=== PATIENT | female | born 1975 | race Two or more races ===

== ENCOUNTER 2020-08-24 13:11 | Emergency (ER) | payer OTHER, SELFPAY ==
--- NOTE | ~2020-08-24 | CT_ITS ---
EXAMINATION: CT ABDOMEN AND PELVIS WITHOUT CONTRAST CLINICAL INFORMATION: Flank pain. History of kidney stones. COMPARISON: CT abdomen pelvis December 27, 2017. KUB January 01, 2018. Renal ultrasound January 22, 2018 TECHNIQUE: Multidetector volumetric imaging was performed from the superior aspect of the liver through the pubic symphysis. Sagittal and coronal reformatted images were obtained on the technologist's workstation. This CT examination was performed using dose optimization techniques as appropriate, variously including the following: *Automated exposure control *Adjustment of mA and/or kV according to patient size (this includes techniques or standardized protocols for targeted exams where dose is matched to indication/reason for exam; i.e. extremities or head) *Use of iterative reconstruction technique DLP: 635 mGy-cm FINDINGS: LUNG BASES: The visualized lung bases are unremarkable. LIVER, GALLBLADDER, AND BILIARY TREE: There are scattered small hypodensities measuring 1 cm and less in size and the liver which are unchanged since CAT scan December 20, 2017. No suspicious liver lesion or intrahepatic bile duct dilatation. The gallbladder is unremarkable with no evidence of radiopaque gallstones, gallbladder wall thickening, or obvious pericholecystic inflammatory changes. PANCREAS: Unremarkable. SPLEEN: Unremarkable. ADRENAL GLANDS: Unremarkable. KIDNEYS AND URETERS: The kidneys are normal in size, shape, and attenuation. No hydronephrosis, hydroureter, or calculi seen. No perinephric stranding. BLADDER: Unremarkable. GASTROINTESTINAL TRACT: There are scattered diverticula of the colon. There is no diverticulitis. There is no bowel wall thickening /edema. There is no bowel obstruction. There is a moderate volume of stool in the colon. The appendix is normal . The small bowel loops are unremarkable. The stomach is normal. There is no hiatal hernia. ABDOMINAL WALL: No significant hernia is appreciated. LYMPH NODES: Normal. VASCULAR: Unremarkable. PELVIC VISCERA: Unremarkable. OSSEOUS STRUCTURES: Degenerative spondylosis of disc height narrowing vacuum disc phenomena endplate spurring and osteosclerosis of endplates L5-S1. No spondylolysis or spondylolisthesis. CT/CT abdomen pelvis wo con IMPRESSION: 1. No acute abnormality CT scan abdomen pelvis. Normal kidneys, ureter and bladder. 2. Mild diverticulosis of colon. No acute change of bowel. 3. Stable scattered hypodensities of liver unchanged since CAT scan December 20, 2017.
[2020-08-24 13:38] VITALS: BP 132/78; PULSE 100; RESP 18; TEMP 36; O2SAT 95; BMI 36.5
[2020-08-24 14:31] LABS: MANUAL DIFF FLAG NO
[2020-08-24 14:35] LABS: Basophils Percent Auto 0.4 % (0-2); Eosinophils Absolute Auto 0.1 X10*3/uL (0.0-0.4); Eosinophils Percent Auto 1.3 % (0-4); Hematocrit 40.5 % (37-47); Hemoglobin 13.1 g/dl (12.0-16.0); Imm Gran Abs Auto 0.04 X10*3/uL (0.00-0.03); Imm Gran Pct Auto 0.4 % (0.0-0.4); Lymphocytes Percent Auto 31.6 % (20-40); Mean Corpuscular HGB Conc 32.3 g/dl (31.0-35.0); Mean Corpuscular Volume 89.8 fL (80-98); Mean Platelet Volume 9.8 fL (9.4-12.3); Monocytes Absolute Auto 0.5 X10*3/uL (0.1-1.2); Monocytes Percent Auto 5.1 % (2-11); Neutrophils Absolute Auto 5.7 X10*3/uL (2.0-8.3); Neutrophils Percent Auto 61.2 % (45-73); Platelet Count 284 X10*3/uL (160-400); Red Blood Count 4.51 X10*6/uL (4.20-5.50); Red Cell Distribution Width 14.1 % (11.0-16.0); White Blood Count 9.3 X10*3/uL (4.8-10.8)
[2020-08-24 15:00] LABS: Anion Gap 10 (12-20); Blood Urea Nitrogen 11 mg/dL (9-16); Calcium 9.4 mg/dL (8.4-10.2); Carbon Dioxide 23 mmol/L (22-29); Chloride 110 mmol/L (96-108); Creatinine Clr Calc Pharmacy 115.2; Estimated Glomerular Filt Rate > 60; Glucose Random 94 mg/dL (60-115); Potassium 4.1 mmol/L (3.3-5.1); Sodium 139 mmol/L (135-145)
[2020-08-24 17:33] VITALS: BP 132/74; PULSE 78; RESP 16; TEMP 36.9; O2SAT 99
[2020-08-24 17:50] LABS: Glucose Urine UA NEG (NEG); Leukocyte Esterase Urine NEG (NEG); Nitrite Urine NEG (NEG); PH 5.5 (5.0-8.0); Specific Gravity - Urine >= 1.030 (1.005-1.025); Urine Blood 3+ (NEG); Urine Ketones NEG (NEG); Urine Protein 1+ MG/DL (NEG-TRACE)
[2020-08-24 17:52] LABS: Appearance Urine CLOUDY; Color Urine DARK YELLOW
[2020-08-24 17:53] LABS: UPreg QC Valid YES; Urine Pregnancy NEGATIVE (NEGATIVE)
[2020-08-24 17:57] VITALS: BP 121/58; PULSE 80; RESP 16; TEMP 36.6; O2SAT 99
[2020-08-24] MEDS: Morphine Sulfate 4 MG/ML CARTRIDGE IVPUSH (17:59)
[2020-08-24] MEDS: Ketorolac Tromethamine 30 MG/ML VIAL IVPUSH (17:59)
[2020-08-24] MEDS: ondansetron HCL 4 MG/2 ML VIAL IVPUSH (17:59)
[2020-08-24] MEDS: 0.9 % Sodium Chloride 1,000 ML 999 ML IVCONT (17:59)
[2020-08-24 18:10] LABS: Amorphous Sediment Urine TRACE /LPF; Mucus Urine TRACE /LPF; Squamous Epithelial Cell Urine TRACE /LPF; WBC Urine 0 /HPF (0-4)
--- NOTE | 2020-08-24 18:40 | ED.FEMALEGU ---
HPI - Female Genitourinary General Chief complaint: Urogenital-Female Stated complaint: nauseous Time Seen by Provider: 08/24/20 17:26 Source: patient Mode of arrival: ambulatory Limitations: no limitations History of Present Illness HPI Narrative: 45-year-old female with past medical history of kidney stones presents with 2 days of abdominal pain, flank pain radiating down to her groin, and urinary symptoms. She states it feels like her prior kidney stones, and she also has nausea and intermittent chills. She does not describe any chest pain or pressure, palpitations, shortness breath, shortness of breath on exertion, abdominal distention, hematuria, vomiting, diarrhea, constipation, melena, hematochezia, edema, loss of balance, Vaginal pain, vaginal discharge, abnormal vaginal bleeding or any other concerning symptoms. MD elicited complaint: dysuria and flank pain Pertinent past history: other ( kidney stones) Onset (ago): day(s) ( to) Location of symptoms: LLQ Severity: moderate Female Urogenital Radiation: LLQ and L Flank Severity scale (1-10): 9 Quality of pain: sharp, stabbing and aching Consistency: intermittent Vaginal discharge: none Vaginal bleeding: none Urinary symptoms: Dysuria and Difficulty Urinating Exacerbating factors: movement Relieving factors: none Associated symptoms: loss of appetite and nausea Treatment prior to arrival: none Sexual activity: No Patient : No Related Data Previous Rx's Medication Instructions Recorded cyclobenzaprine 10 mg PO TID PRN #14 tab 08/24/20 ibuprofen 600 mg PO Q6H PRN #60 tab 08/24/20 Allergies Allergy/AdvReac Type Severity Reaction Status Date / Time No Known Allergies Allergy Verified 08/24/20 13:37 Review of Systems Review of Systems: Constitutional: No Fever, positive Chills ENT/Mouth: No sore throat Eyes: No Eye Pain, No Swelling, No Redness Cardiovascular: No Chest Pain, No SOB Respiratory: No Cough, No Sputum, No Wheezing Gastrointestinal: positive Nausea, no Vomiting, No Diarrhea, positive abdominal pain Genitourinary: positive Dysuria, positive urinary frequency, positive Hematuria, positive Flank Pain, positive hesitancy Musculoskeletal: No joint pain, No Myalgias Skin: No Skin Lesions, No rash Neuro: No Weakness, No Numbness, No Headache Psych: No Anxiety/Panic, No Depression Heme/Lymph: No Bruising, No Lymphadenopathy Endocrine: No Polyuria, No Polydipsia Yes all other systems are reviewed and are negative ON LICENSE OF [facility] Past Medical History Attestation statement: The following information was validated with the patient. Source: old records reviewed Medical History Kidney calculi Social History Social History Patient Tobacco Use Status: Current everyday Tobacco user Use of substances other than those prescribed or required for medical reasons: No Advance Directives: No Advance Directives Information Provided: Yes Patient : No Physical Exam Vital Signs: Vital Signs: Last Vital Signs Temp 97.8 F 08/24/20 17:57 Pulse 80 08/24/20 17:57 Resp 16 08/24/20 17:57 BP 121/58 L 08/24/20 17:57 Pulse Ox 99 08/24/20 17:57 Body Mass Index 36.5 Appearance: Alert. Oriented X3. moderate distress. Eyes: Pupils equal, round and reactive to light. ENT: Pharynx normal. Neck: Normal inspection. Neck supple. CVS: Normal heart rate and rhythm. Pulses normal. Respiratory: No respiratory distress. Breath sounds normal. Abdomen: Soft and left upper left lower quadrant tenderness to palpation, positive CVA tenderness greater on the Left than the right. Skin: Skin warm and dry. Normal skin color. Normal skin turgor. Extremities: No lower extremity edema. moves all extremities against resistance. Gait well Balanced well coordinated. Neuro: No motor deficit. No sensory deficit. cranial nerves 2-12 intact. Course Course Course Narrative: 45-year-old male presents with abdominal pain, flank pain and urinary symptoms. Urinalysis pending, CBC and Chem 7 unremarkable will. Will order CT scan abdomen pelvis rule out kidney stone. Will resuscitate with 1 L fluid, give Toradol, Benadryl, and morphine. CT scan is negative, for patient presentation is consistent with possibly a passed kidney stone. Will have patient follow-up with primary care physician. Patient verbalized understanding of and agrees to plan of care discharge home. MDM - Female Genitourinary MDM Narrative Medical decision making narrative: Kidney stone, pyelonephritis Differential Diagnosis Differential diagnosis: Likely urinary tract infection, ruptured ovarian cyst and cystitis Medical Records Attestation: I reviewed the patient's medical records. Lab Data Attestation: I reviewed the patient's lab results. Result diagrams: 08/24/20 14:27 08/24/20 14:27 Labs: Lab Results 08/24/20 08/24/20 08/24/20 Range/Units 14:27 14:27 17:43 WBC 9.3 (4.8-10.8) X10*3/uL RBC 4.51 (4.20-5.50) X10*6/uL Hgb 13.1 (12.0-16.0) g/dl Hct 40.5 (37-47) % MCV 89.8 (80-98) fL MCH 29.0 (27.0-33.0) pg MCHC 32.3 (31.0-35.0) g/dl RDW 14.1 (11.0-16.0) % Plt Count 284 (160-400) X10*3/uL MPV 9.8 (9.4-12.3) fL Immature Gran % (Auto) 0.4 (0.0-0.4) % Neut % (Auto) 61.2 (45-73) % Lymph % (Auto) 31.6 (20-40) % [place] % (Auto) 5.1 (2-11) % Eos % (Auto) 1.3 (0-4) % Baso % (Auto) 0.4 (0-2) % Lymph # (Auto) 3.0 (1.2-4.9) X10*3/uL [place] # (Auto) 0.5 (0.1-1.2) X10*3/uL Eos # (Auto) 0.1 (0.0-0.4) X10*3/uL Baso # (Auto) 0.0 (0.0-0.2) X10*3/uL Abs Immat Gran (auto) 0.04 H (0.00-0.03) X10*3/uL Absolute Neuts (auto) 5.7 (2.0-8.3) X10*3/uL Absolute Nucleated RBC 0.000 (0.0-0.012) X10*3/uL Nucleated RBC % (auto) 0.0 (0.0-0.2) /100WBC Sodium 139 (135-145) mmol/L Potassium 4.1 (3.3-5.1) mmol/L Chloride 110 H (96-108) mmol/L Carbon Dioxide 23 (22-29) mmol/L Anion Gap 10 L (12-20) BUN 11 (9-16) mg/dL Creatinine 0.71 (0.5-1.4) mg/dL Estim Creat Clear Calc 115.2 Estimated GFR > 60 Random Glucose 94 (60-115) mg/dL Calcium 9.4 (8.4-10.2) mg/dL Urine Color DARK YELLOW Urine Appearance CLOUDY Urine pH 5.5 (5.0-8.0) Ur Specific [place] >= 1.030 H (1.005-1.025) Urine Protein 1+ H (NEG-TRACE) MG/DL Urine Glucose (UA) NEG (NEG) MG/DL Urine Ketones NEG (NEG) MG/DL Urine Blood 3+ H (NEG) Urine Nitrite NEG (NEG) Ur Leukocyte Esterase NEG (NEG) Urine RBC 76-150 H (0) /HPF Urine WBC 0 (0-4) /HPF Ur Squamous Epith Cells TRACE /LPF Amorphous Sediment TRACE /LPF Urine Bacteria NONE /LPF Urine Mucus TRACE /LPF Urine Test (NEGATIVE) 08/24/20 Range/Units 17:43 WBC (4.8-10.8) X10*3/uL RBC (4.20-5.50) X10*6/uL Hgb (12.0-16.0) g/dl Hct (37-47) % MCV (80-98) fL MCH (27.0-33.0) pg MCHC (31.0-35.0) g/dl RDW (11.0-16.0) % Plt Count (160-400) X10*3/uL MPV (9.4-12.3) fL Immature Gran % (Auto) (0.0-0.4) % Neut % (Auto) (45-73) % Lymph % (Auto) (20-40) % [place] % (Auto) (2-11) % Eos % (Auto) (0-4) % Baso % (Auto) (0-2) % Lymph # (Auto) (1.2-4.9) X10*3/uL [place] # (Auto) (0.1-1.2) X10*3/uL Eos # (Auto) (0.0-0.4) X10*3/uL Baso # (Auto) (0.0-0.2) X10*3/uL Abs Immat Gran (auto) (0.00-0.03) X10*3/uL Absolute Neuts (auto) (2.0-8.3) X10*3/uL Absolute Nucleated RBC (0.0-0.012) X10*3/uL Nucleated RBC % (auto) (0.0-0.2) /100WBC Sodium (135-145) mmol/L Potassium (3.3-5.1) mmol/L Chloride (96-108) mmol/L Carbon Dioxide (22-29) mmol/L Anion Gap (12-20) BUN (9-16) mg/dL Creatinine (0.5-1.4) mg/dL Estim Creat Clear Calc Estimated GFR Random Glucose (60-115) mg/dL Calcium (8.4-10.2) mg/dL Urine Color Urine Appearance Urine pH (5.0-8.0) Ur Specific [place] (1.005-1.025) Urine Protein (NEG-TRACE) MG/DL Urine Glucose (UA) (NEG) MG/DL Urine Ketones (NEG) MG/DL Urine Blood (NEG) Urine Nitrite (NEG) Ur Leukocyte Esterase (NEG) Urine RBC (0) /HPF Urine WBC (0-4) /HPF Ur Squamous Epith Cells /LPF Amorphous Sediment /LPF Urine Bacteria /LPF Urine Mucus /LPF Urine Test NEGATIVE (NEGATIVE) Imaging Data CT abdomen pelvis: Attestation: I personally reviewed and interpreted this imaging study as follows: Radiologist's impression: FINDINGS: LUNG BASES: The visualized lung bases are unremarkable. LIVER, GALLBLADDER, AND BILIARY TREE: There are scattered small hypodensities measuring 1 cm and less in size and the liver which are unchanged since CAT scan December 20, 2017. No suspicious liver lesion or intrahepatic bile duct dilatation. The gallbladder is unremarkable with no evidence of radiopaque gallstones, gallbladder wall thickening, or obvious pericholecystic inflammatory changes. PANCREAS: Unremarkable. SPLEEN: Unremarkable. ADRENAL GLANDS: Unremarkable. KIDNEYS AND URETERS: The kidneys are normal in size, shape, and attenuation. No hydronephrosis, hydroureter, or calculi seen. No perinephric stranding. BLADDER: Unremarkable. GASTROINTESTINAL TRACT: There are scattered diverticula of the colon. There is no diverticulitis. There is no bowel wall thickening /edema. There is no bowel obstruction. There is a moderate volume of stool in the colon. The appendix is normal . The small bowel loops are unremarkable. The stomach is normal. There is no hiatal hernia. ABDOMINAL WALL: No significant hernia is appreciated. LYMPH NODES: Normal. VASCULAR: Unremarkable. PELVIC VISCERA: Unremarkable. OSSEOUS STRUCTURES: Degenerative spondylosis of disc height narrowing vacuum disc phenomena endplate spurring and osteosclerosis of endplates L5-S1. No spondylolysis or spondylolisthesis. CT/CT abdomen pelvis wo con IMPRESSION: 1. No acute abnormality CT scan abdomen pelvis. Normal kidneys, ureter and bladder. 2. Mild diverticulosis of colon. No acute change of bowel. 3. Stable scattered hypodensities of liver unchanged since CAT scan December 20, 2017. Discharge Plan Discharge Clinical Impression: Renal colic Constipation Qualifiers: Constipation type: unspecified constipation type Qualified Code(s): K59.00 - Constipation, unspecified Chronic back pain Qualifiers: Back pain location: back pain in unspecified location Back pain laterality: midline Qualified Code(s): M54.9 - Dorsalgia, unspecified Patient Disposition: Home, Self-Care Instructions: Constipation (ED), Renal Colic (ED), Chronic Back Pain (DC) Additional Instructions: you were evaluated for abdominal pain, flank pain and back pain. CT scan of abdomen and pelvis is negative for acute findings requiring emergent intervention. Incidental finding was constipation, please use MiraLax on a daily basis. Please follow-up with Pain Management, Dr. Watson. we prescribe cyclobenzaprine which is a muscle relaxer, this medication can cause drowsiness, delay reaction time, and increased risk of falls. Do not drive or operate machinery while taking this medication. We prescribed Motrin 600 mg. Please take this medication every 6-8 hours as needed. Thank you for choosing this emergency department for evaluation. Please follow-up with primary care physician as needed. Return to the emergency department for any new, concerning, or worsening symptoms. Prescriptions: New cyclobenzaprine 10 mg tablet 10 mg PO TID PRN (Reason: muscle spasm) Qty: 14 RF: 0 ibuprofen 600 mg tablet 600 mg PO Q6H PRN (Reason: pain) Qty: 60 RF: 0 Interventions: ED Discharge Assessment Last Done: 08/24/20 19:31 Discharge Date/Time: 08/24/20 19:33
== END 2020-08-24 19:33 | disposition home or self-care (01) ==
PROVIDERS: Emergency Provider Emergency Medicine
DX: N23 Unspecified renal colic (principal); K59.00 Constipation, unspecified; G89.29 Other chronic pain; M54.9 Dorsalgia, unspecified; R11.0 Nausea; Z87.442 Personal history of urinary calculi
CPT/HCPCS: 36415; 74176; 80048; 81001; 81025; 85025; 96361; 96374; 96375; 99284; J1885; J2270; J2405

== ENCOUNTER 2021-01-07 13:59 | Emergency (ER) | payer OTHER, SELFPAY ==
--- NOTE | ~2021-01-07 | US_ITS ---
EXAMINATION: US OBSTETRICAL PELVIC AND TRANSVAGINAL CLINICAL INFORMATION: Vaginal bleeding and cramping. Nausea and vomiting. Beta-hCG 303. Date of LMP unknown. Patient passing large clots. COMPARISON: None. TECHNIQUE: Real-time scanning of the pelvis is acquired via transabdominal and transvaginal approach. FINDINGS: An anteverted uterus is mildly enlarged measures 13.1 x 7.2 x 8.8 cm in length, AP and transverse dimensions, respectively. There is no evidence of intrauterine . Increased vascularity is noted in the endometrial region in the otv-ou-coccn uterine segment. There is diffuse heterogeneity of the myometrium. Trace pelvic free fluid. The right ovary measures 3.4 x 2.1 x 2.3 cm and the left ovary measures 3.1 x 3.0 x 1.9 cm. The ovaries are normal in appearance. No adnexal mass. Trace free fluid in the pelvis is likely physiologic. US/US OB pelvic and transvaginal IMPRESSION: No evidence of intrauterine at this time. Increased vascularity is noted in the endometrial region in the [id number]-[id number] uterine segment; possibility of retained products of conception cannot be excluded. Other possibility may include very early intrauterine uterine with nonvisualization of intrauterine at this time. Recommend close clinical follow-up. Recommend correlation with serial beta-hCG. Follow-up imaging may be obtained as clinically deemed necessary.
[2021-01-07 14:30] VITALS: BP 144/91; PULSE 115; RESP 16; TEMP 36.9; O2SAT 100; BMI 33.5
--- NOTE | 2021-01-07 14:58 | ED.FEMALEGU ---
HPI - Female Genitourinary General Chief complaint: Vaginal Bleeding Stated complaint: VAGINAL BLEEDING [place]IS[place]RIAGE Time Seen by Provider: 01/07/21 14:28 Source: patient Mode of arrival: ambulatory History of Present Illness HPI Narrative: 45-year-old female presenting to the ED complaining of vaginal bleeding since Saturday with passage of large clots yesterday & positive test at home. Reports associated abdominal cramping, nausea, and emesis today. Denies fever, chills, diarrhea, dysuria, flank pain, lightheadedness/dizziness. Does not take anticoagulation Related Data Previous Rx's Medication Instructions Recorded cyclobenzaprine 10 mg tablet 10 mg PO TID PRN #14 tab 08/24/20 ibuprofen 600 mg tablet 600 mg PO Q6H PRN #60 tab 08/24/20 Allergies Allergy/AdvReac Type Severity Reaction Status Date / Time No Known Allergies Allergy Verified 08/24/20 13:37 Review of Systems Review of Systems: Constitutional: No Fever, No Chills, No Fatigue, No Malaise ENT/Mouth: No Hearing loss, No Ear Pain, No Nasal Congestion, No sore throat, No Rhinorrhea Eyes: No Eye Pain, No Swelling, No Vision Changes Cardiovascular: No Chest Pain, No SOB, No Dyspnea on Exertion, No Orthopnea, No Edema, No Palpitations Respiratory: No Cough, No Sputum, No Dyspnea Gastrointestinal: + Nausea, + Vomiting, No Diarrhea, No Constipation, + Abdominal pain, No Hematochezia, No Melena Genitourinary: + irregular bleeding, No Dysuria, No Hematuria, No Urgency, No Flank Pain, No vaginal discharge Musculoskeletal: No joint pain, No Myalgias, No Joint Swelling Skin: No Skin Lesions, No rash Neuro: No Weakness, No Numbness, No Loss of Consciousness, No Dizziness, No Headache Yes all other systems are reviewed and are negative [facility] Past Medical History Attestation statement: The following information was validated with the patient. Medical History Kidney calculi Social History Social History Patient Tobacco Use Status: Current everyday Tobacco user Advance Directives: No Advance Directives Information Provided: No Physical Exam Vital Signs: Vital Signs: Last Vital Signs Temp 98.2 F 01/07/21 17:48 Pulse 97 01/07/21 17:48 Resp 18 01/07/21 17:48 BP 135/79 01/07/21 17:48 Pulse Ox 98 01/07/21 17:48 Body Mass Index 33.5 Const: General: cooperative, healthy appearing and no acute distress Orientation/consciousness: patient oriented x3 Limitations: no limitations HENMT: Head: Yes normal to inspection Ears: hearing grossly normal bilaterally General nose exam: Normal external nose present Face and sinus: Yes normal facial exam Eyes: General: appearance normal, both eyes and all related structures EOM: EOMs intact bilaterally Neck: Neck: Yes normal visual inspection and Yes no meningeal signs Resp: Effort & Inspection: normal respiratory effort and no respiratory distress Auscultation: clear to auscultation bilaterally Cardio: Rate: regular rate Heart sounds: S1 normal heart sound present and S2 normal heart sound present GI: Inspection: Yes normal to inspection Palpation (GI): Soft to palpation, nontender, no guarding and not rigid : Other: + vaginal bleeding with large clots clots from cervix. No active hemorrhage General: Yes no CVA tenderness Speculum Exam - Vagina: vaginal bleeding Speculum Exam - Cervix: nontender Bimanual exam- vagina & uterus: normal bimanual exam and No Cervical tenderness present Bimanual Exam- Adnexa, other: normal adnexae and no tenderness OB/external & speculum: vaginal bleeding Back/Spine/Pelvis: Back: no CVA tenderness Skin: Rashes: no rashes Wounds: no wounds Neuro: General: patient oriented x3 and no meningeal signs Gait exam (Neuro): Normal gait present Extrem: General: Yes normal to inspection Course Course Course Narrative: -1612--no leukocytosis. H&H lower than baseline at 10.9/33 > will obtain 3 hour repeat -hCG 307. Labs otherwise unremarkable - UA infected and with RBCs > patient given 1st dose of Keflex in the ED -1740--US OB pelvic and transvaginal IMPRESSION: No evidence of intrauterine at this time. Increased vascularity is noted in the endometrial region in the [id number] uterine segment; possibility of retained products of conception cannot be excluded. Other possibility may include very early intrauterine uterine with nonvisualization of intrauterine at this time. Recommend close clinical follow-up. Recommend correlation with serial beta-hCG. Follow-up imaging may be obtained as clinically deemed necessary. > OBGYN Dr. Boogie consulted, recommended observation for 1-2 hours with re-evaluation/pad count, pending possible D&C for incomplete versus complete -1800--ED care transferred to EILEEN Gill pending repeat H&H at 6:30 p.m. and pad count/observation x1.5 hours followed by OBGYN recommendations MDM - Female Genitourinary MDM Narrative Medical decision making narrative: 45-year-old female presenting to the ED complaining of vaginal bleeding since Saturday with passage of large clots yesterday & positive test at home. Reports associated abdominal cramping, nausea, and emesis today. On exam initially tachycardic, NAD/nontoxic, abdomen soft/nontender, no CVAT. On pelvic exam vaginal bleeding noted with large clots from cervix. No CMT or adnexal tenderness. Concern for /the and/incomplete vs ectopic vs DUB. Lower concern for appendicitis/diverticulitis or renal stone Plan: Labs, UA, pelvic, pelvic ultrasound, re-evaluate Medical Records Attestation: I reviewed the patient's medical records. Lab Data Attestation: I reviewed the patient's lab results. Result diagrams: 01/07/21 15:38 01/07/21 15:38 Labs: Lab Results 01/07/21 01/07/21 01/07/21 Range/Units 15:38 15:38 15:38 WBC 9.8 (4.8-10.8) X10*3/uL RBC 3.68 L (4.20-5.50) X10*6/uL Hgb 10.9 L (12.0-16.0) g/dl Hct 33.0 L (37.0-47.0) % MCV 89.7 (80.0-98.0) fL MCH 29.6 (27.0-33.0) pg MCHC 33.0 (31.0-35.0) g/dl RDW 14.5 (11.0-16.0) % Plt Count 236 (160-400) X10*3/uL MPV 9.9 (9.4-12.3) fL Immature Gran % (Auto) 0.5 H (0.0-0.4) % Neut % (Auto) 60.4 (45-73) % Lymph % (Auto) 32.3 (20-40) % [place] % (Auto) 4.8 (2-11) % Eos % (Auto) 1.5 (0-4) % Baso % (Auto) 0.5 (0-2) % Lymph # (Auto) 3.2 (1.2-4.9) X10*3/uL [place] # (Auto) 0.5 (0.1-1.2) X10*3/uL Eos # (Auto) 0.2 (0.0-0.4) X10*3/uL Baso # (Auto) 0.1 (0.0-0.2) X10*3/uL Abs Immat Gran (auto) 0.05 H (0.00-0.03) X10*3/uL Absolute Neuts (auto) 5.9 (2.0-8.3) x10*3/uL Absolute Nucleated RBC 0.000 (0.0-0.012) X10*3/uL Nucleated RBC % (auto) 0.0 (0.0-0.2) /100WBC Sodium 140 (135-145) mmol/L Potassium 3.5 (3.3-5.1) mmol/L Chloride 108 (96-108) mmol/L Carbon Dioxide 26 (22-29) mmol/L Anion Gap 10 L (12-20) BUN 9 (9-16) mg/dL Creatinine 0.68 (0.5-1.4) mg/dL Estim Creat Clear Calc 114.8 Estimated GFR > 60 Random Glucose 107 (60-115) mg/dL Calcium 8.4 D (8.4-10.2) mg/dL Magnesium 1.8 (1.6-2.6) mg/dL Total Bilirubin 0.2 (0.0-1.0) mg/dL Direct Bilirubin < 0.2 (0.0-0.5) mg/dL AST 13 (5-31) U/L ALT 16 (0-31) U/L Alkaline Phosphatase 60 (39-117) U/L Total Protein 7.0 (6.5-8.0) g/dL Albumin 3.7 (3.5-5.0) g/dL Lipase 39 (8-78) U/L Beta HCG, Quant 307 mIU/mL Urine Color Urine Appearance Urine pH (5.0-8.0) Ur Specific [place] (1.005-1.025) Urine Protein (NEG-TRACE) MG/DL Urine Glucose (UA) (NEG) MG/DL Urine Ketones (NEG) MG/DL Urine Blood (NEG) Urine Nitrite (NEG) Ur Leukocyte Esterase (NEG) Urine RBC (0) /HPF Urine WBC (0-4) /HPF Ur Squamous Epith Cells /LPF Calcium Oxalate Crystal /LPF Urine Bacteria /LPF Urine Mucus /LPF Urine Yeast /HPF COVID-19 (JAMAL) (Negative) COVID-19 Clin Com Blood Type O Positive 01/07/21 01/07/21 Range/Units 15:38 15:47 WBC (4.8-10.8) X10*3/uL RBC (4.20-5.50) X10*6/uL Hgb (12.0-16.0) g/dl Hct (37.0-47.0) % MCV (80.0-98.0) fL MCH (27.0-33.0) pg MCHC (31.0-35.0) g/dl RDW (11.0-16.0) % Plt Count (160-400) X10*3/uL MPV (9.4-12.3) fL Immature Gran % (Auto) (0.0-0.4) % Neut % (Auto) (45-73) % Lymph % (Auto) (20-40) % [place] % (Auto) (2-11) % Eos % (Auto) (0-4) % Baso % (Auto) (0-2) % Lymph # (Auto) (1.2-4.9) X10*3/uL [place] # (Auto) (0.1-1.2) X10*3/uL Eos # (Auto) (0.0-0.4) X10*3/uL Baso # (Auto) (0.0-0.2) X10*3/uL Abs Immat Gran (auto) (0.00-0.03) X10*3/uL Absolute Neuts (auto) (2.0-8.3) x10*3/uL Absolute Nucleated RBC (0.0-0.012) X10*3/uL Nucleated RBC % (auto) (0.0-0.2) /100WBC Sodium (135-145) mmol/L Potassium (3.3-5.1) mmol/L Chloride (96-108) mmol/L Carbon Dioxide (22-29) mmol/L Anion Gap (12-20) BUN (9-16) mg/dL Creatinine (0.5-1.4) mg/dL Estim Creat Clear Calc Estimated GFR Random Glucose (60-115) mg/dL Calcium (8.4-10.2) mg/dL Magnesium (1.6-2.6) mg/dL Total Bilirubin (0.0-1.0) mg/dL Direct Bilirubin (0.0-0.5) mg/dL AST (5-31) U/L ALT (0-31) U/L Alkaline Phosphatase (39-117) U/L Total Protein (6.5-8.0) g/dL Albumin (3.5-5.0) g/dL Lipase (8-78) U/L Beta HCG, Quant mIU/mL Urine Color RED Urine Appearance TURBID Urine pH 5.5 (5.0-8.0) Ur Specific [place] >= 1.030 H (1.005-1.025) Urine Protein 2+ H (NEG-TRACE) MG/DL Urine Glucose (UA) NEG (NEG) MG/DL Urine Ketones 5 (NEG) MG/DL Urine Blood 3+ H (NEG) Urine Nitrite POS H (NEG) Ur Leukocyte Esterase TRACE H (NEG) Urine RBC TNTC H (0) /HPF Urine WBC 1-4 (0-4) /HPF Ur Squamous Epith Cells 2+ /LPF Calcium Oxalate Crystal TRACE /LPF Urine Bacteria TRACE /LPF Urine Mucus 2+ /LPF Urine Yeast TRACE /HPF COVID-19 (JAMAL) Negative (Negative) COVID-19 Clin Com See Note Blood Type Critical Care Time Critical Care Time Critical Care Time: Yes Total Critical Care Time: 35 Attestation: >35 minutes of critical care time was spent speaking with patient, reviewing labs, reviewing imaging, re-evaluating patient, and speaking with consultants Discharge Plan Discharge Clinical Impression: UTI (urinary tract infection), Miscarriage Prescriptions: No Action cyclobenzaprine 10 mg tablet 10 mg PO TID PRN (Reason: muscle spasm) Qty: 14 RF: 0 ibuprofen 600 mg tablet 600 mg PO Q6H PRN (Reason: pain) Qty: 60 RF: 0
[2021-01-07 15:44] LABS: MANUAL DIFF FLAG NO
[2021-01-07 15:46] LABS: Basophils Absolute Auto 0.1 X10*3/uL (0.0-0.2); Basophils Percent Auto 0.5 % (0-2); Eosinophils Absolute Auto 0.2 X10*3/uL (0.0-0.4); Eosinophils Percent Auto 1.5 % (0-4); Hemoglobin 10.9 g/dl (12.0-16.0); Imm Gran Abs Auto 0.05 X10*3/uL (0.00-0.03); Imm Gran Pct Auto 0.5 % (0.0-0.4); Lymphocytes Absolute Auto 3.2 X10*3/uL (1.2-4.9); Lymphocytes Percent Auto 32.3 % (20-40); Mean Corpuscular Hemoglobin 29.6 pg (27.0-33.0); Mean Corpuscular Volume 89.7 fL (80.0-98.0); Mean Platelet Volume 9.9 fL (9.4-12.3); Monocytes Absolute Auto 0.5 X10*3/uL (0.1-1.2); Monocytes Percent Auto 4.8 % (2-11); Neutrophils Absolute Auto 5.9 x10*3/uL (2.0-8.3); Neutrophils Percent Auto 60.4 % (45-73); Platelet Count 236 X10*3/uL (160-400); Red Blood Count 3.68 X10*6/uL (4.20-5.50); Red Cell Distribution Width 14.5 % (11.0-16.0); White Blood Count 9.8 X10*3/uL (4.8-10.8)
[2021-01-07 15:56] LABS: Appearance Urine TURBID; Color Urine RED; Glucose Urine UA NEG (NEG); Leukocyte Esterase Urine TRACE (NEG); Nitrite Urine POS (NEG); PH 5.5 (5.0-8.0); Specific Gravity - Urine >= 1.030 (1.005-1.025); UACC Culture Trigger YES; Urine Blood 3+ (NEG); Urine Ketones 5 MG/DL (NEG); Urine Protein 2+ MG/DL (NEG-TRACE)
[2021-01-07 16:00] LABS: COVID-19 Test Negative (Negative); IDNOW Serial# 9DD0AD1C
[2021-01-07 16:01] LABS: Mucus Urine 2+ /LPF; RBC Urine TNTC /HPF (0); Squamous Epithelial Cell Urine 2+ /LPF
[2021-01-07 16:02] LABS: Bacteria Urine TRACE /LPF; Calcium Oxalate Crystals Urine TRACE /LPF
[2021-01-07 16:07] LABS: Alanine Aminotransferase 16 U/L (0-31); Albumin Level 3.7 g/dL (3.5-5.0); Alkaline Phosphatase 60 U/L (39-117); Anion Gap 10 (12-20); Aspartate Amino Transferase 13 U/L (5-31); Blood Urea Nitrogen 9 mg/dL (9-16); Calcium 8.4 mg/dL (8.4-10.2); Carbon Dioxide 26 mmol/L (22-29); Chloride 108 mmol/L (96-108); Creatinine Clr Calc Pharmacy 114.8; Estimated Glomerular Filt Rate > 60; Glucose Random 107 mg/dL (60-115); Lipase 39 U/L (8-78); Magnesium 1.8 mg/dL (1.6-2.6); Potassium 3.5 mmol/L (3.3-5.1); Sodium 140 mmol/L (135-145)
[2021-01-07 16:09] LABS: HCG Quantitative 307 mIU/mL
[2021-01-07 16:20] LABS: Bilirubin Direct < 0.2 mg/dL (0.0-0.5); Bilirubin Total 0.2 mg/dL (0.0-1.0)
[2021-01-07 17:48] VITALS: BP 135/79; PULSE 97; RESP 18; TEMP 36.8; O2SAT 98
[2021-01-07] MEDS: cephALEXin 500 MG CAPSULE PO (18:21)
[2021-01-07 18:55] LABS: MANUAL DIFF FLAG NO
[2021-01-07 18:56] LABS: Basophils Percent Auto 0.4 % (0-2); Eosinophils Absolute Auto 0.1 X10*3/uL (0.0-0.4); Eosinophils Percent Auto 1.5 % (0-4); Hematocrit 32.5 % (37.0-47.0); Hemoglobin 10.5 g/dl (12.0-16.0); Imm Gran Abs Auto 0.03 X10*3/uL (0.00-0.03); Imm Gran Pct Auto 0.3 % (0.0-0.4); Lymphocytes Absolute Auto 3.2 X10*3/uL (1.2-4.9); Lymphocytes Percent Auto 33.4 % (20-40); Mean Corpuscular HGB Conc 32.3 g/dl (31.0-35.0); Mean Corpuscular Hemoglobin 29.3 pg (27.0-33.0); Mean Corpuscular Volume 90.8 fL (80.0-98.0); Mean Platelet Volume 9.9 fL (9.4-12.3); Monocytes Absolute Auto 0.4 X10*3/uL (0.1-1.2); Monocytes Percent Auto 3.7 % (2-11); Neutrophils Absolute Auto 5.7 x10*3/uL (2.0-8.3); Neutrophils Percent Auto 60.7 % (45-73); Platelet Count 225 X10*3/uL (160-400); Red Blood Count 3.58 X10*6/uL (4.20-5.50); Red Cell Distribution Width 14.6 % (11.0-16.0); White Blood Count 9.4 X10*3/uL (4.8-10.8)
--- NOTE | 2021-01-07 19:47 | PM.GYNCN ---
CORRECTION LIEUTENANT - CN: HPI Data of Consult Consult date: 01/07/21 Primary Care Provider: None Physician Consult Narrative Narrative: I was consulted on Cherelle Rooney who is a 45 year old female who presented emergency room with 6 day history of vaginal bleeding, the patient LMP was last Saturday, 6 days ago, and was not delayed, 8 was associated with very heavy vaginal bleeding according to the patient, associated with passage of blood clots and cramping that lasted for 5 days. Today, the bleeding started to slow down with the cramping. The patient has been in the emergency room few the last hours, the last couple of hours the bleeding almost stopped and the cramping slowed down markedly according to the patient H&H at 15:38 was 10.9/33, repeated at 18:52 was 10.5/32.5, hCG was 307 and blood type is O positive. Pelvic ultrasound showed No evidence of intrauterine at this time. Increased vascularity is noted in the endometrial region in the [id number] uterine segment; possibility of retained products of conception cannot be excluded. Other possibility may include very early intrauterine uterine with nonvisualization of intrauterine at this time cc:: CC: MAINTENANCE AIDE - Review of Systems Review of Systems ROS Unobtainable: All systems reviewed & are unremarkable except as noted in HPI and below OB PMFSH Past Medical History Medical History Kidney calculi Social History Social History Patient Tobacco Use Status: Current everyday Tobacco user Advance Directives: No Advance Directives Information Provided: No Meds Allergies Allergy/AdvReac Type Severity Reaction Status Date / Time No Known Allergies Allergy Verified 08/24/20 13:37 CORRECTION LIEUTENANT Physical Exam Vitals Vital signs: Temp Pulse Resp BP Pulse Ox 98.2 F 97 18 135/79 98 01/07/21 17:48 01/07/21 17:48 01/07/21 17:48 01/07/21 17:48 01/07/21 17:48 Body Mass Index 33.5 Female Genitalia (Pelvic) Vulva: No lesions Vagina: No erythema, Normal discharge and No lesions Cervix: Grossly normal and No cervical motion tenderness Uterus: Normal size and Nontender Adnexa/Parametria: Adnexal Tenderness: None, Adnexal Mass: None, Parametrial Tenderness: None and Parametrial Mass: None Additional Comments: Pelvic exam showed no blood per vagina, no active bleeding CORRECTION LIEUTENANT - Results Labs CBC & Chem 7: 01/07/21 18:52 01/07/21 15:38 Labs: Short CBC 01/07/21 01/07/21 Range/Units 15:38 18:52 WBC 9.8 9.4 (4.8-10.8) X10*3/uL Hgb 10.9 L 10.5 L (12.0-16.0) g/dl Hct 33.0 L 32.5 L (37.0-47.0) % Plt Count 236 225 (160-400) X10*3/uL BMP 01/07/21 15:38 Sodium 140 Potassium 3.5 Chloride 108 Carbon Dioxide 26 BUN 9 Creatinine 0.68 Calcium 8.4 D Liver Function 01/07/21 Range/Units 15:38 Total Bilirubin 0.2 (0.0-1.0) mg/dL Direct Bilirubin < 0.2 (0.0-0.5) mg/dL AST 13 (5-31) U/L ALT 16 (0-31) U/L Alkaline Phosphatase 60 (39-117) U/L Albumin 3.7 (3.5-5.0) g/dL Urine 01/07/21 Range/Units 15:47 Urine Color RED Urine Appearance TURBID Urine pH 5.5 (5.0-8.0) Ur Specific [place] >= 1.030 H (1.005-1.025) Urine Protein 2+ H (NEG-TRACE) MG/DL Urine Glucose (UA) NEG (NEG) MG/DL Imaging US - abdomen: Radiologist's impression: ITS Impressions Pelvic/Transvag US 01/07/21 16:10 IMPRESSION: No evidence of intrauterine at this time. Increased vascularity is noted in the endometrial region in the waw-pq-delar uterine segment; possibility of retained products of conception cannot be excluded. Other possibility may include very early intrauterine uterine with nonvisualization of intrauterine at this time. Recommend close clinical follow-up. Recommend correlation with serial beta-hCG. Follow-up imaging may be obtained as clinically deemed necessary. Assessment and Plan (1) Complete : Status: Acute Discussed with the patient the finding on physical exam, no blood per vagina, no evidence of active bleeding; since the abdominal cramping and vaginal bleeding has resolved, discussed with the patient that the clinical picture is consistent with complete but cannot rule out incomplete , ectopic or early intrauterine . IRecommended repeat hCG on Saturday and follow-up in the office, instructions given to patient to call or come back to emergency room in case of heavy vaginal bleeding, cramping or abdominal pain. All questions answered, the patient verbalized understanding. I discussed the case with Bridget Morales, emergency room PA
[2021-01-08 04:51] LABS: CT PCR NOT DETECTED (Not Detect.); NG PCR NOT DETECTED (Not Detect.)
== END 2021-01-07 20:20 | disposition home or self-care (01) ==
PROVIDERS: Physician Assistant; Emergency Provider Internal Medicine
DX: O03.9 Complete or unspecified spontaneous abortion without complication (principal); N39.0 Urinary tract infection, site not specified; Z20.822 Contact with and (suspected) exposure to COVID-19; Z79.899 Other long term (current) drug therapy
CPT/HCPCS: 36415; 76801; 76817; 80048; 80076; 81001; 83690; 83735; 84702; 85025; 86900; 86901; 87086; 87480; 87491; 87510; 87591; 87635; 87660; 96360; 99283; 99291

== ENCOUNTER 2021-03-10 10:20 | Outpatient (REF) | payer OTHER, SELFPAY ==
[2021-03-10 10:50] LABS: Binax Now Covid-19 Ag Positive (Negative)
[2021-03-10 10:51] LABS: Binax Internal Control QC Valid; Binax Lot number: 9864
== END 2021-03-10 10:21 | disposition home or self-care (01) ==
LOC: HO.LAB 10:20
PROVIDERS: Visit Provider Internal Medicine
DX: Z20.822 Contact with and (suspected) exposure to COVID-19 (principal)
CPT/HCPCS: C9803

== ENCOUNTER 2021-06-20 13:10 | Emergency (ER) | payer OTHER, SELFPAY ==
--- NOTE | ~2021-06-20 | XR_ITS ---
EXAMINATION: XR CHEST CLINICAL INFORMATION: Shortness of breath COMPARISON: None TECHNIQUE: 2 views of the chest were obtained. FINDINGS: No focal consolidation. No pneumothorax. Trachea is midline. Cardiomediastinal silhouette is not enlarged. No large joint. Minimal degenerative changes of the thoracolumbar spine. Soft tissues are unremarkable. XR/XR chest 2V IMPRESSION: No acute cardiopulmonary process.
[2021-06-20 13:13] VITALS: BP 155/83; PULSE 99; RESP 18; TEMP 36.6; O2SAT 99; BMI 36.6
--- NOTE | 2021-06-20 13:17 | ECG_ITS ---
Test Reason : chest tightness Blood Pressure : / mmHG Vent. Rate : 089 BPM Atrial Rate : 089 BPM P-R Int : 126 ms QRS Dur : 088 ms QT Int : 362 ms P-R-T Axes : 053 039 033 degrees QTc Int : 440 ms Normal sinus rhythm Normal ECG No previous ECGs available Referred By: Generic ED Physician Electronically Signed By:SUZI CARBAJAL
[2021-06-20 13:52] LABS: COVID-19 Test Negative (Negative); IDNOW Serial# 16C4AD1C; Influenza A Negative (Negative); Influenza B2 Negative (Negative)
--- NOTE | 2021-06-20 13:59 | ED_ITS ---
HPI - SOB/Dyspnea General Chief Complaint: Dyspnea Stated Complaint: diff breathing Time Seen by Provider: 06/20/21 13:47 Source: patient Mode of arrival: ambulatory Limitations: no limitations History of Present Illness HPI Narrative: 46 years old female walked in for evaluation of shortness of breath. Patient been complaining of SOB and chest pain for the past 4-6 days, describes symptoms as intermittent, more when she lay supine, less when she stood up, increase with exertion, described symptoms severity as moderate 5/10. Patient did not get vaccination for COVID and had COVID infection in the past felt the same way, however patient declined any sick contact, no recent travel, no lower extremity swelling. No fever chills. Chest pain has no radiation just localized in the center of the chest feels like tightness. Patient quit smoking a month ago. Related Data Previous Rx's Medication Instructions Recorded cyclobenzaprine 10 mg tablet 10 mg PO TID PRN #14 tab 08/24/20 ibuprofen 600 mg tablet 600 mg PO Q6H PRN #60 tab 08/24/20 albuterol sulfate 90 mcg/actuation 1 inh INHALATION QID PRN #6.7 g 06/20/21 aerosol inhaler azithromycin 250 mg tablet See Rx Instructions .ROUTE 06/20/21 (Zithromax Z-Karel) .COMPLEX #6 tab prednisone 10 mg tablet 10 mg PO BID #6 tab 06/20/21 Allergies Allergy/AdvReac Type Severity Reaction Status Date / Time No Known Allergies Allergy Verified 06/20/21 13:12 Review of Systems Review of Systems: All other systems are reviewed and are negative Constitutional: Reports as per HPI and Reports no additional constitutional complaints Eyes: Reports as per HPI and Reports no additional eye complaints Reports system reviewed and no additional complaints, except as documented Cardiovascular: Reports as per HPI and Reports no additional cardiovascular complaints Respiratory: Reports as per HPI and Reports no additional respiratory complaints Gastrointestinal: Reports as per HPI and Reports no additional gastrointestinal complaints Genitourinary: Reports no additional female genitourinary complaints Musculoskeletal: Reports no additional musculoskeletal complaints Skin/Breast: Reports system reviewed and no additional complaints, except as docu Psychiatric: Reports no additional psychiatric complaints Endocrine: Reports no additional endocrine complaints Hematologic/Lymphatic: Reports no additional hematologic/lymphatic complaints Allergic/Immunologic: Reports no additional allergic/immunologic complaints Reports system reviewed and no additional complaints, except as documented and Reports Abnormal speech present PMFSH Past Medical History Medical History Kidney calculi Social History Social History Alcohol intake: never Patient Tobacco Use Status: Never used Tobacco Use of substances other than those prescribed or required for medical reasons: No Advance Directives: No Advance Directives Information Provided: No Physical Exam Vital Signs: Vital Signs: Last Vital Signs Temp 98.9 F 06/20/21 15:14 Pulse 101 H 06/20/21 15:14 Resp 18 06/20/21 14:19 BP 135/77 06/20/21 15:14 Pulse Ox 96 06/20/21 15:14 BMI result Body Mass Index 36.6 Vital signs have been reviewed as appeared to be correct. Blood pressure normal. Heart rate normal. Respiration rate normal. Temperature normal. Oxygen saturation normal. Appearance: Alert. Oriented X3. No acute distress. Head: Normal external exam. Normocephalic. Atraumatic. No Quinones signs noted. No raccoon eyes noted Eyes: PERRLA. EOMI. Conjunctiva and sclera normal. Eyelids normal. ENT: TM's Normal. Pharynx normal. Uvula midline. Moist mucous membranes. No trismus noted. No drooling noted. No muffled voice noted. Neck: Normal inspection. Neck supple. FROM. No adenopathy. Thyroid Normal. No meningeal signs. No neck mass noted. CVS: Normal heart rate and rhythm. Heart sound normal. No murmurs noted. Pulses normal throughout. Respiratory: No respiratory distress. Painless inspiration. Breath sounds normal. Mild expiratory wheezing. Chest nontender. No accessory muscle usage noted or decreased air movement noted. Abdomen: Soft and nontender. Bowel sounds normal in all 4 quadrants. No distention noted. No organomegaly noted. No visible injury noted. Back: No CVA tenderness. Full range of motion noted. Skin: Skin warm and dry. Normal skin color. Normal skin turgor. No r ashes/lesions/lacerations noted. Extremities: No lower extremity edema. Extremities exhibit normal range of motion. Extremities nontender. Neuro: Oriented X 3. Cranial nerve exam: II-XII are grossly intact No motor deficit. No sensory deficit. Reflexes normal. Course Course Course Narrative: Assessment and plan. 46-year-old female came in for evaluation of difficulty breathing and chest pain for the past few days, patient recently quit smoking. Patient had a negative workup for PE/coronary artery disease/negative x-ray for pulmonary disease. Patient was instructed to follow-up with her primary doctor for elevated blood sugar, patient do not have a diagnosis of diabetes. Start the patient on bronchodilator/prednisone. MDM - SOB/Dyspnea Medical Records Attestation: I reviewed the patient's medical records. Lab Data Attestation: I reviewed the patient's lab results. Result diagrams: 06/20/21 14:12 06/20/21 14:12 Labs: Lab Results 06/20/21 06/20/21 06/20/21 Range/Units 13:26 13:26 14:12 WBC 7.6 (4.8-10.8) X10*3/uL RBC 4.43 D (4.20-5.50) X10*6/uL Hgb 11.3 L (12.0-16.0) g/dl Hct 35.9 L (37.0-47.0) % MCV 81.0 (80.0-98.0) fL MCH 25.5 L (27.0-33.0) pg MCHC 31.5 (31.0-35.0) g/dl RDW 17.3 H (11.0-16.0) % Plt Count 275 (160-400) X10*3/uL MPV 9.9 (9.4-12.3) fL Immature Gran % (Auto) 0.5 H (0.0-0.4) % Neut % (Auto) 69.6 (45-73) % Lymph % (Auto) 25.7 (20-40) % [place] % (Auto) 2.6 (2-11) % Eos % (Auto) 1.2 (0-4) % Baso % (Auto) 0.4 (0-2) % Lymph # (Auto) 1.9 (1.2-4.9) X10*3/uL [place] # (Auto) 0.2 (0.1-1.2) X10*3/uL Eos # (Auto) 0.1 (0.0-0.4) X10*3/uL Baso # (Auto) 0.0 (0.0-0.2) X10*3/uL Abs Immat Gran (auto) 0.04 H (0.00-0.03) X10*3/uL Absolute Neuts (auto) 5.3 (2.0-8.3) x10*3/uL Absolute Nucleated RBC 0.000 (0.0-0.012) X10*3/uL Nucleated RBC % (auto) 0.0 (0.0-0.2) /100WBC D-Dimer High Sensitivty NG/ML Sodium (135-145) mmol/L Potassium (3.3-5.1) mmol/L Chloride (96-108) mmol/L Carbon Dioxide (22-29) mmol/L Anion Gap (12-20) BUN (9-16) mg/dL Creatinine (0.5-1.4) mg/dL Estim Creat Clear Calc Estimated GFR Random Glucose (60-115) mg/dL Calcium (8.4-10.2) mg/dL Total Bilirubin (0.0-1.0) mg/dL Direct Bilirubin (0.0-0.5) mg/dL AST (5-31) U/L ALT (0-31) U/L Alkaline Phosphatase (39-117) U/L Troponin I High Sens (<3.5-17.0) ng/L Total Protein (6.5-8.0) g/dL Albumin (3.5-5.0) g/dL Lipase (8-78) U/L Urine Color Urine Appearance Urine pH (5.0-8.0) Ur Specific [place] (1.005-1.025) Urine Protein (NEG-TRACE) MG/DL Urine Glucose (UA) (NEG) MG/DL Urine Ketones (NEG) MG/DL Urine Blood (NEG) Urine Nitrite (NEG) Ur Leukocyte Esterase (NEG) Urine RBC (0) /HPF Urine WBC (0-4) /HPF Ur Squamous Epith Cells /LPF Urine Bacteria /LPF Urine Test (NEGATIVE) COVID-19 (JAMAL) Negative (Negative) COVID-19 Clin Com See Note Influenza Type A (IMMANUEL) Negative (Negative) Influenza Type B (IMMANUEL) Negative (Negative) Influenza A & B Note See Note 06/20/21 06/20/21 06/20/21 Range/Units 14:12 14:12 14:12 WBC (4.8-10.8) X10*3/uL RBC (4.20-5.50) X10*6/uL Hgb (12.0-16.0) g/dl Hct (37.0-47.0) % MCV (80.0-98.0) fL MCH (27.0-33.0) pg MCHC (31.0-35.0) g/dl RDW (11.0-16.0) % Plt Count (160-400) X10*3/uL MPV (9.4-12.3) fL Immature Gran % (Auto) (0.0-0.4) % Neut % (Auto) (45-73) % Lymph % (Auto) (20-40) % [place] % (Auto) (2-11) % Eos % (Auto) (0-4) % Baso % (Auto) (0-2) % Lymph # (Auto) (1.2-4.9) X10*3/uL [place] # (Auto) (0.1-1.2) X10*3/uL Eos # (Auto) (0.0-0.4) X10*3/uL Baso # (Auto) (0.0-0.2) X10*3/uL Abs Immat Gran (auto) (0.00-0.03) X10*3/uL Absolute Neuts (auto) (2.0-8.3) x10*3/uL Absolute Nucleated RBC (0.0-0.012) X10*3/uL Nucleated RBC % (auto) (0.0-0.2) /100WBC D-Dimer High Sensitivty < 150 NG/ML Sodium 136 (135-145) mmol/L Potassium 4.2 (3.3-5.1) mmol/L Chloride 103 (96-108) mmol/L Carbon Dioxide 25 (22-29) mmol/L Anion Gap 12 (12-20) BUN 8 L (9-16) mg/dL Creatinine 0.68 (0.5-1.4) mg/dL Estim Creat Clear Calc 119.1 Estimated GFR > 60 Random Glucose 184 H (60-115) mg/dL Calcium 8.5 (8.4-10.2) mg/dL Total Bilirubin 0.3 (0.0-1.0) mg/dL Direct Bilirubin < 0.2 (0.0-0.5) mg/dL AST 18 (5-31) U/L ALT 12 (0-31) U/L Alkaline Phosphatase 66 (39-117) U/L Troponin I High Sens < 3.5 (<3.5-17.0) ng/L Total Protein 7.6 (6.5-8.0) g/dL Albumin 3.6 (3.5-5.0) g/dL Lipase 34 (8-78) U/L Urine Color Urine Appearance Urine pH (5.0-8.0) Ur Specific [place] (1.005-1.025) Urine Protein (NEG-TRACE) MG/DL Urine Glucose (UA) (NEG) MG/DL Urine Ketones (NEG) MG/DL Urine Blood (NEG) Urine Nitrite (NEG) Ur Leukocyte Esterase (NEG) Urine RBC (0) /HPF Urine WBC (0-4) /HPF Ur Squamous Epith Cells /LPF Urine Bacteria /LPF Urine Test (NEGATIVE) COVID-19 (JAMAL) (Negative) COVID-19 Clin Com Influenza Type A (IMMANUEL) (Negative) Influenza Type B (IMMANUEL) (Negative) Influenza A & B Note 06/20/21 06/20/21 Range/Units 14:47 14:47 WBC (4.8-10.8) X10*3/uL RBC (4.20-5.50) X10*6/uL Hgb (12.0-16.0) g/dl Hct (37.0-47.0) % MCV (80.0-98.0) fL MCH (27.0-33.0) pg MCHC (31.0-35.0) g/dl RDW (11.0-16.0) % Plt Count (160-400) X10*3/uL MPV (9.4-12.3) fL Immature Gran % (Auto) (0.0-0.4) % Neut % (Auto) (45-73) % Lymph % (Auto) (20-40) % [place] % (Auto) (2-11) % Eos % (Auto) (0-4) % Baso % (Auto) (0-2) % Lymph # (Auto) (1.2-4.9) X10*3/uL [place] # (Auto) (0.1-1.2) X10*3/uL Eos # (Auto) (0.0-0.4) X10*3/uL Baso # (Auto) (0.0-0.2) X10*3/uL Abs Immat Gran (auto) (0.00-0.03) X10*3/uL Absolute Neuts (auto) (2.0-8.3) x10*3/uL Absolute Nucleated RBC (0.0-0.012) X10*3/uL Nucleated RBC % (auto) (0.0-0.2) /100WBC D-Dimer High Sensitivty NG/ML Sodium (135-145) mmol/L Potassium (3.3-5.1) mmol/L Chloride (96-108) mmol/L Carbon Dioxide (22-29) mmol/L Anion Gap (12-20) BUN (9-16) mg/dL Creatinine (0.5-1.4) mg/dL Estim Creat Clear Calc Estimated GFR Random Glucose (60-115) mg/dL Calcium (8.4-10.2) mg/dL Total Bilirubin (0.0-1.0) mg/dL Direct Bilirubin (0.0-0.5) mg/dL AST (5-31) U/L ALT (0-31) U/L Alkaline Phosphatase (39-117) U/L Troponin I High Sens (<3.5-17.0) ng/L Total Protein (6.5-8.0) g/dL Albumin (3.5-5.0) g/dL Lipase (8-78) U/L Urine Color YELLOW Urine Appearance CLEAR Urine pH 6.5 (5.0-8.0) Ur Specific [place] 1.015 (1.005-1.025) Urine Protein TRACE (NEG-TRACE) MG/DL Urine Glucose (UA) NEG (NEG) MG/DL Urine Ketones NEG (NEG) MG/DL Urine Blood 2+ H (NEG) Urine Nitrite NEG (NEG) Ur Leukocyte Esterase NEG (NEG) Urine RBC 1-4 (0) /HPF Urine WBC 1-4 (0-4) /HPF Ur Squamous Epith Cells TRACE /LPF Urine Bacteria 1+ /LPF Urine Test NEGATIVE (NEGATIVE) COVID-19 (JAMAL) (Negative) COVID-19 Clin Com Influenza Type A (IMMANUEL) (Negative) Influenza Type B (IMMANUEL) (Negative) Influenza A & B Note Imaging Data Chest x-ray: Attestation: I personally reviewed and interpreted this imaging study as follows: Radiologist's impression: No acute thoracic pathology. ECG Data Attestation: I personally reviewed and interpreted this ECG as follows: Interpretation: Normal sinus rhythm at 89 beats per minute, normal axis deviation, normal inte rvals, no ST-T changes. Discharge Plan Discharge Clinical Impression: Acute bronchitis, Hyperglycemia Patient Disposition: Home, Self-Care Instructions: Acute Bronchitis (ED) Prescriptions: New prednisone 10 mg tablet 10 mg PO BID Qty: 6 0RF azithromycin [Zithromax Z-Karel] 250 mg tablet See Rx Instructions .ROUTE .COMPLEX Qty: 6 0RF Rx Instructions: For 250 mg dose pack: take 500 mg today (day 1), then 250 mg for 4 days (days 2-5) albuterol sulfate 90 mcg/actuation HFA aerosol inhaler 1 inh inhalation QID PRN (Reason: shortness of breath or wheezing) Qty: 6.7 0RF No Action cyclobenzaprine 10 mg tablet 10 mg PO TID PRN (Reason: muscle spasm) Qty: 14 0RF ibuprofen 600 mg tablet 600 mg PO Q6H PRN (Reason: pain) Qty: 60 0RF Referrals: Physician,None [Primary Care Provider] -
[2021-06-20 14:01] VITALS: BP 130/80; PULSE 97; RESP 16; TEMP 37.1; O2SAT 98
[2021-06-20 14:15] LABS: MANUAL DIFF FLAG NO
[2021-06-20 14:18] LABS: Basophils Percent Auto 0.4 % (0-2); Eosinophils Absolute Auto 0.1 X10*3/uL (0.0-0.4); Eosinophils Percent Auto 1.2 % (0-4); Hematocrit 35.9 % (37.0-47.0); Hemoglobin 11.3 g/dl (12.0-16.0); Imm Gran Abs Auto 0.04 X10*3/uL (0.00-0.03); Imm Gran Pct Auto 0.5 % (0.0-0.4); Lymphocytes Absolute Auto 1.9 X10*3/uL (1.2-4.9); Lymphocytes Percent Auto 25.7 % (20-40); Mean Corpuscular HGB Conc 31.5 g/dl (31.0-35.0); Mean Corpuscular Hemoglobin 25.5 pg (27.0-33.0); Mean Platelet Volume 9.9 fL (9.4-12.3); Monocytes Absolute Auto 0.2 X10*3/uL (0.1-1.2); Monocytes Percent Auto 2.6 % (2-11); Neutrophils Absolute Auto 5.3 x10*3/uL (2.0-8.3); Neutrophils Percent Auto 69.6 % (45-73); Platelet Count 275 X10*3/uL (160-400); Red Blood Count 4.43 X10*6/uL (4.20-5.50); Red Cell Distribution Width 17.3 % (11.0-16.0); White Blood Count 7.6 X10*3/uL (4.8-10.8)
[2021-06-20] MEDS: Albuterol/Iprat 2.5/0.5MG 3 ML AMPUL.NEB INHALE (14:18)
[2021-06-20 14:19] VITALS: PULSE 96; RESP 18; O2SAT 100
[2021-06-20 14:27] LABS: D Dimer High Sensitivity < 150 NG/ML
[2021-06-20 14:45] LABS: Alanine Aminotransferase 12 U/L (0-31); Albumin Level 3.6 g/dL (3.5-5.0); Alkaline Phosphatase 66 U/L (39-117); Anion Gap 12 (12-20); Aspartate Amino Transferase 18 U/L (5-31); Bilirubin Direct < 0.2 mg/dL (0.0-0.5); Bilirubin Total 0.3 mg/dL (0.0-1.0); Blood Urea Nitrogen 8 mg/dL (9-16); Calcium 8.5 mg/dL (8.4-10.2); Carbon Dioxide 25 mmol/L (22-29); Chloride 103 mmol/L (96-108); Creatinine Clr Calc Pharmacy 119.1; Estimated Glomerular Filt Rate > 60; Glucose Random 184 mg/dL (60-115); Lipase 34 U/L (8-78); Potassium 4.2 mmol/L (3.3-5.1); Sodium 136 mmol/L (135-145); Total Protein 7.6 g/dL (6.5-8.0)
[2021-06-20 14:46] LABS: Troponin-I High Sensitivity < 3.5 ng/L (<3.5-17.0)
[2021-06-20 14:57] LABS: Appearance Urine CLEAR; Color Urine YELLOW; Glucose Urine UA NEG (NEG); Leukocyte Esterase Urine NEG (NEG); Nitrite Urine NEG (NEG); PH 6.5 (5.0-8.0); Specific Gravity - Urine 1.015 (1.005-1.025); UACC Culture Trigger NO; Urine Blood 2+ (NEG); Urine Ketones NEG (NEG); Urine Protein TRACE MG/DL (NEG-TRACE)
[2021-06-20 14:58] LABS: UPreg QC Valid YES; Urine Pregnancy NEGATIVE (NEGATIVE)
[2021-06-20 15:14] VITALS: BP 135/77; PULSE 101; TEMP 37.2; O2SAT 96
[2021-06-20 15:26] LABS: Bacteria Urine 1+ /LPF
[2021-06-20 15:27] LABS: Squamous Epithelial Cell Urine TRACE /LPF
== END 2021-06-20 15:56 | disposition home or self-care (01) ==
PROVIDERS: Emergency Provider Emergency Medicine
DX: J20.9 Acute bronchitis, unspecified (principal); R73.9 Hyperglycemia, unspecified; Z87.891 Personal history of nicotine dependence; Z20.822 Contact with and (suspected) exposure to COVID-19
CPT/HCPCS: 36415; 71046; 80048; 80076; 81001; 81003; 81025; 83690; 84484; 85025; 85379; 87502; 87635; 93005; 94640; 99284

== ENCOUNTER 2021-07-15 10:26 | Emergency (ER) | payer OTHER, SELFPAY ==
--- NOTE | ~2021-07-15 | US_ITS ---
EXAMINATION: US PELVIS CLINICAL INFORMATION: Lower abdominal cramping and back pain COMPARISON: None TECHNIQUE: Ultrasound of the pelvis is performed using both transabdominal and transvaginal transducers along with Doppler. Transvaginal imaging is performed due to inadequate visualization transabdominally. FINDINGS: Uterus: The uterus is anteverted, anteflexed and measures 9.1 x 5.3 x 8.1 cm. The double wall endometrial thickness is 1.6 cm. The uterus is smooth in contour and has normal myometrial echogenicity. No visible fibroid. There are small nabothian cysts in the cervix. Adnexa: Both ovaries are visualized. There is normal color flow to the adnexa. There is no ovarian torsion. There is no pelvic ascites or fluid collection. Right ovary measures 3.1 x 2.3 x 2.0 cm and volume 7.5 mL. It appears unremarkable. The right ovary previously measured 2.6 x 2.3 x 2.3 cm. Left ovary measures 2.2 x 1.9 x 2.2 cm and volume 4.8 mL. It appears unremarkable. Previously left ovary measured 5.3 x 4.1 x 3.9 cm. There is no free fluid in the cul-de-sac US/US pelvic and transvaginal IMPRESSION: Small nabothian cysts in the cervix. Otherwise the uterus and ovaries are unremarkable.
--- NOTE | ~2021-07-15 | CT_ITS ---
EXAMINATION: CT ABDOMEN AND PELVIS WITHOUT CONTRAST CLINICAL INFORMATION: 46-year-old female with abdominal pain COMPARISON: Pelvic ultrasound from 07/15/[address] scan of the abdomen from 08/24/2020 TECHNIQUE: Multidetector volumetric imaging was performed from the superior aspect of the liver through the pubic symphysis. Sagittal and coronal reformatted images were obtained on the technologist's workstation. This CT examination was performed using dose optimization techniques as appropriate, variously including the following: *Automated exposure control *Adjustment of mA and/or kV according to patient size (this includes techniques or standardized protocols for targeted exams where dose is matched to indication/reason for exam; i.e. extremities or head) *Use of iterative reconstruction technique DLP: 692 mGy-cm FINDINGS: LUNG BASES: The visualized lung bases are unremarkable. LIVER, GALLBLADDER, AND BILIARY TREE: There is stable 1.3 cm lesion in the right lobe of the liver most likely hemangioma. There are small gallstones seen in the dependent portion of gallbladder and cystic duct. No evidence of stones in CBD and no evidence of cholecystitis. PANCREAS: Unremarkable. SPLEEN: Unremarkable. ADRENAL GLANDS: Unremarkable. KIDNEYS AND URETERS: The kidneys are normal in size, shape, and attenuation. No hydronephrosis, hydroureter, seen. Punctate calculi are seen in the upper pole and lower pole of left kidney without evidence of hydronephrosis. No perinephric stranding. BLADDER: Unremarkable. GASTROINTESTINAL TRACT: The small and large bowel are unremarkable. The appendix is unremarkable. There are scattered diverticula but no evidence of diverticulitis. Appendix present to the left of the midline. ABDOMINAL WALL: No significant hernia is appreciated. LYMPH NODES: There are reactive appearing inguinal lymph nodes of nonpathological size. There are no mesenteric lymphadenopathy. No evidence of retroperitoneal lymphadenopathy. VASCULAR: Unremarkable. PELVIC VISCERA: Uterus is enlarged most likely due to uterine fibroids. Correlate with pelvic ultrasound OSSEOUS STRUCTURES: Unremarkable. CT/CT abdomen pelvis wo con IMPRESSION: Cholelithiasis new since previous study small stones are identified in cystic duct. Enlarged uterus Nonobstructing punctate calculi in the left kidney Hemangioma in the right lobe of the liver stable since previous study Fleischner guidelines were followed.
[2021-07-15 11:03] VITALS: BP 154/96; PULSE 100; RESP 18; TEMP 37.2; O2SAT 100; BMI 34.3
[2021-07-15 11:37] LABS: MANUAL DIFF FLAG NO
[2021-07-15 11:38] LABS: Basophils Percent Auto 0.4 % (0-2); Eosinophils Absolute Auto 0.1 X10*3/uL (0.0-0.4); Eosinophils Percent Auto 1.7 % (0-4); Hematocrit 35.3 % (37.0-47.0); Imm Gran Abs Auto 0.02 X10*3/uL (0.00-0.03); Imm Gran Pct Auto 0.2 % (0.0-0.4); Lymphocytes Absolute Auto 2.9 X10*3/uL (1.2-4.9); Lymphocytes Percent Auto 36.1 % (20-40); Mean Corpuscular HGB Conc 31.2 g/dl (31.0-35.0); Mean Corpuscular Hemoglobin 25.5 pg (27.0-33.0); Mean Corpuscular Volume 81.9 fL (80.0-98.0); Mean Platelet Volume 9.8 fL (9.4-12.3); Monocytes Absolute Auto 0.4 X10*3/uL (0.1-1.2); Monocytes Percent Auto 4.9 % (2-11); Neutrophils Absolute Auto 4.6 x10*3/uL (2.0-8.3); Neutrophils Percent Auto 56.7 % (45-73); Platelet Count 331 X10*3/uL (160-400); Red Blood Count 4.31 X10*6/uL (4.20-5.50)
[2021-07-15 11:57] LABS: Alanine Aminotransferase 15 U/L (0-31); Albumin Level 3.7 g/dL (3.5-5.0); Alkaline Phosphatase 68 U/L (39-117); Anion Gap 12 (12-20); Aspartate Amino Transferase 13 U/L (5-31); Bilirubin Total 0.3 mg/dL (0.0-1.0); Blood Urea Nitrogen 8 mg/dL (9-16); Carbon Dioxide 24 mmol/L (22-29); Chloride 104 mmol/L (96-108); Creatinine Clr Calc Pharmacy 111.9; Estimated Glomerular Filt Rate > 60; Glucose Random 142 mg/dL (60-115); Sodium 136 mmol/L (135-145); Total Protein 7.6 g/dL (6.5-8.0)
--- NOTE | 2021-07-15 12:19 | ED.GENADULT ---
HPI - General Adult General Chief complaint: General Medical Stated complaint: back pain/stomach cramping/diff breathing Time Seen by Provider: 07/15/21 12:09 Source: patient Mode of arrival: ambulatory Limitations: no limitations History of Present Illness HPI narrative: 46yo female here with reports of lower abdominal cramping bilateral since last evening with radiation to her low back. No urinary symptoms, fevers, chills ,urinary symptoms, vomiting, diarrhea, constipation. Patient had her menses last week. She tells me this was her expected time of menses. She does have a menses once a month. Normally it last 5-7 days and is quite heavy and painful. She does not have a application integration architect. She last saw 1 about 4 years ago after she delivered her daughter. She has not had any recent exams or Pap smears. She is sexually active with 1 male partner. She does not use any contraception. Related Data Previous Rx's Medication Instructions Recorded cyclobenzaprine 10 mg tablet 10 mg PO TID PRN #14 tab 08/24/20 ibuprofen 600 mg tablet 600 mg PO Q6H PRN #60 tab 08/24/20 albuterol sulfate 90 mcg/actuation 1 inh INHALATION QID PRN #6.7 g 06/20/21 aerosol inhaler azithromycin 250 mg tablet See Rx Instructions .ROUTE 06/20/21 (Zithromax Z-Karel) .COMPLEX #6 tab prednisone 10 mg tablet 10 mg PO BID #6 tab 06/20/21 cyclobenzaprine 10 mg tablet 10 mg PO TID PRN #10 tab 07/15/21 lidocaine 5 % topical patch 1 patch TOPICAL DAILY #15 ea 07/15/21 (Lidoderm) naproxen 500 mg tablet 500 mg PO BID PRN #20 tab 07/15/21 Allergies Allergy/AdvReac Type Severity Reaction Status Date / Time No Known Allergies Allergy Verified 07/15/21 11:03 Review of Systems Review of Systems: Yes all other systems are reviewed and are negative Constitutional: Constitutional: Reports no additional constitutional complaints, Denies body ache(s), Denies chills, Denies fever(s), Denies headache(s) and Denies weakness Eyes: Eyes: Reports no additional eye complaints and Denies change in vision ENT: Reports system reviewed and no additional complaints, except as documented, Denies dizziness, Denies headache(s), Denies nasal congestion, Denies nasal discharge and Denies neck pain Cardiovascular: Cardiovascular: Reports no additional cardiovascular complaints, Denies chest pain, Denies leg edema and Denies dyspnea Respiratory: Respiratory: Reports no additional respiratory complaints, Denies cough and Denies dyspnea Gastrointestinal: Gastrointestinal: Reports no additional gastrointestinal complaints, Reports abdominal pain, Denies diarrhea, Denies nausea and Denies vomiting Genitourinary: Genitourinary: Reports no additional female genitourinary complaints and Denies urinary incontinence Musculoskeletal: Musculoskeletal: Reports no additional musculoskeletal complaints, Reports back pain, Denies arthralgias, Denies joint swelling, Denies neck pain, Denies numbness and Denies tingling Integumentary/Breasts: Skin/Breast: Reports system reviewed and no additional complaints, except as docu and Denies rash Neurologic: Reports system reviewed and no additional complaints, except as documented, Denies dizziness, Denies headache(s), Denies numbness, Denies tingling and Denies weakness PMFSH Past Medical History Attestation statement: The following information was validated with the patient. Source: old records reviewed and nursing notes reviewed Medical History Kidney calculi Social History Social History Alcohol intake: never Patient Tobacco Use Status: Never used Tobacco Advance Directives: No Advance Directives Information Provided: No Physical Exam ED Vital Signs: Vital Signs - 24 hr 07/15/21 11:03 07/15/21 17:07 Temperature 99 F Pulse Rate 100 90 Respiratory Rate 18 17 Blood Pressure 154/96 H 143/79 H Pulse Oximetry 100 97 BMI result Body Mass Index 34.3 Const General: cooperative, healthy appearing, comfortable and no acute distress Orientation/consciousness: patient oriented x3 Limitations: no limitations HENMT Head: Yes normal to inspection Ears: hearing grossly normal bilaterally General nose exam: Normal external nose present Face and sinus: Yes normal facial exam Mouth: Normal oral and palatal mucosa present Teeth and gingiva: dentition normal Throat: Yes posterior oropharynx normal, Yes tonsils normal and Yes uvula midline Eyes General: appearance normal, both eyes and all related structures Pupils: Equal, round and reactive pupils present Neck Neck: Yes normal visual inspection, Yes full ROM and Yes no lymphadenopathy Chest Chest palpation & inspection: normal inspection of the chest Resp Effort & Inspection: normal respiratory effort Auscultation: clear to auscultation bilaterally Cardio Rate: regular rate Rhythm: regular rhythm Peripheral pulses: Peripheral pulses 2+ throughout GI Inspection: Yes normal to inspection Palpation (GI): Soft to palpation and nontender Other: No cervical motion tenderness or adnexal tenderness-Kalee (composite laminator) present External Female Exam: normal external appearance Speculum Exam - Vagina: normal appearance of the vagina Speculum Exam - Cervix: normal appearance of the cervix Bimanual exam- vagina & uterus: normal bimanual exam Bimanual Exam- Adnexa, other: normal adnexae Skin General skin exam: no rashes or lesions noted Neuro General: patient oriented x3 and moves all extremities Cranial nerves: Yes Equal, round and reactive pupils present Extrem General: Yes normal to inspection, Yes no pedal edema and Yes no calf tenderness Course Course Course Narrative: 46-year-old female here with reports of lower abdominal cramping with radiation to the back since last evening. On exam no focal pain. Will check labs, UA, obtain pelvic exam and pelvic ultrasound Reevaluation(s) Reevaluation #1: Labs unremarkable. UA negative. Pelvic exam shows no acute finding. Pelvic US shows no acute finding. Continued pain although improving. Will check CT A/P Time: 15:15 Reevaluation #2: CT shows- Cholelithiasis new since previous study small stones are identified in cystic duct. Enlarged uterus Nonobstructing punctate calculi in the left kidney Hemangioma in the right lobe of the liver stable since previous study No upper abdominal pain, No vomiting. Likely incidental finding. Patient informed. Recommended low fat diet. F/u with surgery as needed. ?low back pain/lower AP ?secondary to lumbar radiculopathy. Reviewed worrisome signs/symptoms with patient and when to seek additional care. Comfortable with discharge home. Time: 17:45 Medical Decision Making MDM Narrative Medical decision making narrative: PID, UTI Medical Records Medical records reviewed: Yes I reviewed the patient's medical records. Lab Data Lab results reviewed: Yes I reviewed the patient's lab results. Result diagrams: 07/15/21 11:19 07/15/21 11:19 Labs: Lab Results 07/15/21 07/15/21 07/15/21 Range/Units 11:19 11:19 12:28 WBC 8.0 (4.8-10.8) X10*3/uL RBC 4.31 (4.20-5.50) X10*6/uL Hgb 11.0 L (12.0-16.0) g/dl Hct 35.3 L (37.0-47.0) % MCV 81.9 (80.0-98.0) fL MCH 25.5 L (27.0-33.0) pg MCHC 31.2 (31.0-35.0) g/dl RDW 17.0 H (11.0-16.0) % Plt Count 331 (160-400) X10*3/uL MPV 9.8 (9.4-12.3) fL Immature Gran % (Auto) 0.2 (0.0-0.4) % Neut % (Auto) 56.7 (45-73) % Lymph % (Auto) 36.1 (20-40) % [place] % (Auto) 4.9 (2-11) % Eos % (Auto) 1.7 (0-4) % Baso % (Auto) 0.4 (0-2) % Lymph # (Auto) 2.9 (1.2-4.9) X10*3/uL [place] # (Auto) 0.4 (0.1-1.2) X10*3/uL Eos # (Auto) 0.1 (0.0-0.4) X10*3/uL Baso # (Auto) 0.0 (0.0-0.2) X10*3/uL Abs Immat Gran (auto) 0.02 (0.00-0.03) X10*3/uL Absolute Neuts (auto) 4.6 (2.0-8.3) x10*3/uL Absolute Nucleated RBC 0.000 (0.0-0.012) X10*3/uL Nucleated RBC % (auto) 0.0 (0.0-0.2) /100WBC Sodium 136 (135-145) mmol/L Potassium 4.0 (3.3-5.1) mmol/L Chloride 104 (96-108) mmol/L Carbon Dioxide 24 (22-29) mmol/L Anion Gap 12 (12-20) BUN 8 L (9-16) mg/dL Creatinine 0.70 (0.5-1.4) mg/dL Estim Creat Clear Calc 111.9 Estimated GFR > 60 Random Glucose 142 H (60-115) mg/dL Calcium 9.0 (8.4-10.2) mg/dL Total Bilirubin 0.3 (0.0-1.0) mg/dL AST 13 (5-31) U/L ALT 15 (0-31) U/L Alkaline Phosphatase 68 (39-117) U/L Total Protein 7.6 (6.5-8.0) g/dL Albumin 3.7 (3.5-5.0) g/dL Urine Color YELLOW Urine Appearance HAZY Urine pH 6.0 (5.0-8.0) Ur Specific [place] 1.025 (1.005-1.025) Urine Protein NEG (NEG-TRACE) MG/DL Urine Glucose (UA) NEG (NEG) MG/DL Urine Ketones 5 (NEG) MG/DL Urine Blood 2+ H (NEG) Urine Nitrite NEG (NEG) Ur Leukocyte Esterase NEG (NEG) Urine RBC 10-14 H (0) /HPF Urine WBC 0-2 (0-4) /HPF Ur Squamous Epith Cells 4+ /LPF Urine Bacteria 3+ /LPF Urine Test (NEGATIVE) Chlam trachomat DNA PCR (Not Detect.) N.gonorrhoeae DNA (PCR) (Not Detect.) 07/15/21 07/15/21 Range/Units 12:28 12:42 WBC (4.8-10.8) X10*3/uL RBC (4.20-5.50) X10*6/uL Hgb (12.0-16.0) g/dl Hct (37.0-47.0) % MCV (80.0-98.0) fL MCH (27.0-33.0) pg MCHC (31.0-35.0) g/dl RDW (11.0-16.0) % Plt Count (160-400) X10*3/uL MPV (9.4-12.3) fL Immature Gran % (Auto) (0.0-0.4) % Neut % (Auto) (45-73) % Lymph % (Auto) (20-40) % [place] % (Auto) (2-11) % Eos % (Auto) (0-4) % Baso % (Auto) (0-2) % Lymph # (Auto) (1.2-4.9) X10*3/uL [place] # (Auto) (0.1-1.2) X10*3/uL Eos # (Auto) (0.0-0.4) X10*3/uL Baso # (Auto) (0.0-0.2) X10*3/uL Abs Immat Gran (auto) (0.00-0.03) X10*3/uL Absolute Neuts (auto) (2.0-8.3) x10*3/uL Absolute Nucleated RBC (0.0-0.012) X10*3/uL Nucleated RBC % (auto) (0.0-0.2) /100WBC Sodium (135-145) mmol/L Potassium (3.3-5.1) mmol/L Chloride (96-108) mmol/L Carbon Dioxide (22-29) mmol/L Anion Gap (12-20) BUN (9-16) mg/dL Creatinine (0.5-1.4) mg/dL Estim Creat Clear Calc Estimated GFR Random Glucose (60-115) mg/dL Calcium (8.4-10.2) mg/dL Total Bilirubin (0.0-1.0) mg/dL AST (5-31) U/L ALT (0-31) U/L Alkaline Phosphatase (39-117) U/L Total Protein (6.5-8.0) g/dL Albumin (3.5-5.0) g/dL Urine Color Urine Appearance Urine pH (5.0-8.0) Ur Specific [place] (1.005-1.025) Urine Protein (NEG-TRACE) MG/DL Urine Glucose (UA) (NEG) MG/DL Urine Ketones (NEG) MG/DL Urine Blood (NEG) Urine Nitrite (NEG) Ur Leukocyte Esterase (NEG) Urine RBC (0) /HPF Urine WBC (0-4) /HPF Ur Squamous Epith Cells /LPF Urine Bacteria /LPF Urine Test NEGATIVE (NEGATIVE) Chlam trachomat DNA PCR NOT DETECTED (Not Detect.) N.gonorrhoeae DNA (PCR) NOT DETECTED (Not Detect.) Imaging Data CT scan - abdomen: Attestation: I personally reviewed and interpreted this imaging study as follows: Radiologist's impression: FINDINGS: LUNG BASES: The visualized lung bases are unremarkable.? LIVER, GALLBLADDER, AND BILIARY TREE: There is stable 1.3 cm lesion in the right lobe of the liver most likely hemangioma. There are small gallstones seen in the dependent portion of gallbladder and cystic duct. No evidence of stones in CBD and no evidence of cholecystitis.? PANCREAS: Unremarkable.? SPLEEN: Unremarkable.? ADRENAL GLANDS: Unremarkable.? KIDNEYS AND URETERS: The kidneys are normal in size, shape, and attenuation. No hydronephrosis, hydroureter, seen. Punctate calculi are seen in the upper pole and lower pole of left kidney without evidence of hydronephrosis. No perinephric stranding. ? BLADDER: Unremarkable.? GASTROINTESTINAL TRACT: The small and large bowel are unremarkable. The appendix is unremarkable. There are scattered diverticula but no evidence of diverticulitis. Appendix present to the left of the midline. ABDOMINAL WALL: No significant hernia is appreciated.? LYMPH NODES: There are reactive appearing inguinal lymph nodes of nonpathological size. There are no mesenteric lymphadenopathy. No evidence of retroperitoneal lymphadenopathy. VASCULAR: Unremarkable. PELVIC VISCERA: Uterus is enlarged most likely due to uterine fibroids. Correlate with pelvic ultrasound? OSSEOUS STRUCTURES: Unremarkable.? CT/CT abdomen pelvis wo con IMPRESSION: Cholelithiasis new since previous study small stones are identified in cystic duct. Enlarged uterus Nonobstructing punctate calculi in the left kidney Hemangioma in the right lobe of the liver stable since previous study US - abdomen: Attestation: I personally reviewed and interpreted this imaging study as follows: Radiologist's impression: [address] [address] Ultrasound Report Signed Patient: Cherelle Rooney MR#: [id number] : 1975 Acct:[id number] Age/Sex: 46 / F ADM Date: 07/15/21 Loc: HO.ED Attending Dr: Ordering Physician: Aleida Velez NP Date of Service: 07/15/21 Procedure(s): US pelvic and transvaginal Accession Number(s): [id number] cc: Aleida Velez NP~ EXAMINATION:? US PELVIS CLINICAL INFORMATION:? Lower abdominal cramping and back pain COMPARISON: None TECHNIQUE: Ultrasound of the pelvis is performed using both transabdominal and transvaginal transducers along with Doppler. Transvaginal imaging is performed due to inadequate visualization transabdominally. FINDINGS: Uterus: The uterus is anteverted, anteflexed and measures 9.1 x 5.3 x 8.1 cm. The double wall endometrial thickness is 1.6 cm.? The uterus is smooth in contour and has normal myometrial echogenicity. ? No visible fibroid. There are small nabothian cysts in the cervix. Adnexa: Both ovaries are visualized. There is normal color flow to the adnexa. There is no ovarian torsion.? There is no pelvic ascites or fluid collection. Right ovary measures 3.1 x 2.3 x 2.0 cm and volume 7.5 mL. It appears unremarkable. The right ovary previously measured 2.6 x 2.3 x 2.3 cm. Left ovary measures 2.2 x 1.9 x 2.2 cm and volume 4.8 mL. It appears unremarkable. Previously left ovary measured 5.3 x 4.1 x 3.9 cm. There is no free fluid in the cul-de-sac US/US pelvic and transvaginal IMPRESSION: Small nabothian cysts in the cervix. ? Otherwise the uterus and ovaries are unremarkable. Discharge Plan Discharge Clinical Impression: Gallstones, Lumbar strain Patient Disposition: Home, Self-Care Instructions: Gallstones (ED), Acute Low Back Pain (ED) Additional Instructions: Low fat diet Heat or ice to the lower back Gentle stretching No heavy lifting or bending Follow-up with your doctor as discussed Prescriptions: New cyclobenzaprine 10 mg tablet 10 mg PO TID PRN (Reason: muscle spasm) Qty: 10 0RF lidocaine [Lidoderm] 5 % adhesive patch,medicated 1 patch topical DAILY Qty: 15 0RF Rx Instructions: leave on most painful area for up to 12 hrs naproxen 500 mg tablet 500 mg PO BID PRN (Reason: pain) Qty: 20 0RF No Action cyclobenzaprine 10 mg tablet 10 mg PO TID PRN (Reason: muscle spasm) Qty: 14 0RF ibuprofen 600 mg tablet 600 mg PO Q6H PRN (Reason: pain) Qty: 60 0RF prednisone 10 mg tablet 10 mg PO BID Qty: 6 0RF azithromycin [Zithromax Z-Karel] 250 mg tablet See Rx Instructions .ROUTE .COMPLEX Qty: 6 0RF Rx Instructions: For 250 mg dose pack: take 500 mg today (day 1), then 250 mg for 4 days (days 2-5) albuterol sulfate 90 mcg/actuation HFA aerosol inhaler 1 inh inhalation QID PRN (Reason: shortness of breath or wheezing) Qty: 6.7 0RF Referrals: Beto Arana MD [Physician] - 1 week (as wanted ) Interventions: ED Discharge Assessment Last Done: 07/15/21 17:38 Discharge Date/Time: 07/15/21 17:39
[2021-07-15 12:36] LABS: Appearance Urine HAZY; Color Urine YELLOW; Glucose Urine UA NEG (NEG); Leukocyte Esterase Urine NEG (NEG); Nitrite Urine NEG (NEG); Specific Gravity - Urine 1.025 (1.005-1.025); UACC Culture Trigger NO; Urine Blood 2+ (NEG); Urine Ketones 5 MG/DL (NEG); Urine Protein NEG (NEG-TRACE)
[2021-07-15 13:11] LABS: Bacteria Urine 3+ /LPF; Squamous Epithelial Cell Urine 4+ /LPF; WBC Urine 0-2 /HPF (0-4)
[2021-07-15 13:20] LABS: UPreg QC Valid YES; Urine Pregnancy NEGATIVE (NEGATIVE)
[2021-07-15] MEDS: Ketorolac Tromethamine 60 MG/2 ML VIAL IM (13:55)
--- NOTE | 2021-07-15 15:09 | PC.NURSE ---
patient reports cramping is resolved at this time, but back pain is still present. patient in no obvious distress at this time
[2021-07-15 16:56] LABS: CT PCR NOT DETECTED (Not Detect.); NG PCR NOT DETECTED (Not Detect.)
[2021-07-15] MEDS: Cyclobenzaprine HCl 10 MG TABLET PO (17:02)
[2021-07-15] MEDS: Lidocaine 4 % Patch ADH..PATCH 1 PATCH TRANSDERMA (17:03)
[2021-07-15 17:07] VITALS: BP 143/79; PULSE 90; RESP 17; O2SAT 97
[2021-07-16 11:47] LABS: BV Int Neg Control Negative (Negative); BV Int Pos Control Positive (Positive)
== END 2021-07-15 17:39 | disposition home or self-care (01) ==
PROVIDERS: Nurse Practitioner Family; Emergency Provider Emergency Medicine Emergency Medical Services
DX: K80.20 Calculus of gallbladder without cholecystitis without obstruction (principal); S39.012A Strain of muscle, fascia and tendon of lower back, initial encounter; X58.XXXA Exposure to other specified factors, initial encounter; Y93.9 Activity, unspecified; Y92.9 Unspecified place or not applicable; Y99.9 Unspecified external cause status
CPT/HCPCS: 36415; 74176; 76830; 76856; 80053; 81001; 81025; 85025; 87480; 87491; 87510; 87591; 87660; 96372; 99283; 99284; J1885

== ENCOUNTER → 2021-07-28 11:09 | Outpatient (BNVA) | payer OTHER, SELFPAY | PROVIDERS: PCP Internal Medicine; Referring Provider Internal Medicine; Visit Provider Surgery | DX: K80.20 Calculus of gallbladder without cholecystitis without obstruction (principal); E66.01 Morbid (severe) obesity due to excess calories; R73.03 Prediabetes; R29.898 Other symptoms and signs involving the musculoskeletal system; N94.6 Dysmenorrhea, unspecified; N92.0 Excessive and frequent menstruation with regular cycle; R11.10 Vomiting, unspecified; M54.50 Low back pain, unspecified; Z68.37 Body mass index [BMI] 37.0-37.9, adult | CPT/HCPCS: 99202 ==

== ENCOUNTER 2021-08-18 14:12 | Outpatient (REF) | payer OTHER, SELFPAY ==
--- NOTE | ~2021-08-18 | US_ITS ---
EXAMINATION: US ABDOMEN LIMITED CLINICAL INFORMATION: Right upper quadrant pain. COMPARISON: CT abdomen and pelvis without contrast dated 07/15/2021. Renal only ultrasound dated 01/22/2018. KUB dated 01/01/2018. TECHNIQUE: Real-time imaging of the right upper quadrant abdominal viscera. FINDINGS: PANCREAS: Normal. LIVER: The liver is normal in size. The liver contour is normal. Liver echotexture is increased. There are 2 cysts measuring 1.7 x 1.2 x 1.6 cm and 0.9 x 0.6 x 0.7 cm in the right lobe . No other focal liver lesion. There is no intrahepatic biliary duct dilatation seen. GALLBLADDER: There is a gallstone in the gallbladder measuring 1.2 x 1 x 1.6 cm. Gallbladder wall is normal. The gallbladder is normal in size. COMMON BILE DUCT: Normal in caliber measuring 0.3 cm in diameter. RIGHT KIDNEY: Normal. No hydronephrosis. No renal calculi or focal parenchymal lesions. The kidney measures 13.0 cm in maximum dimension. FREE FLUID: None. US/US abdomen limited IMPRESSION: Echogenic liver. Small liver cysts. Gallstone. No evidence of cholecystitis.
== END 2021-08-18 14:13 | disposition home or self-care (01) ==
LOC: HO.US 14:12
PROVIDERS: Visit Provider Surgery
DX: R10.11 Right upper quadrant pain (principal)
CPT/HCPCS: 76705

== ENCOUNTER 2021-08-23 15:38 | Outpatient (REF) | payer OTHER, SELFPAY ==
[2021-08-23 16:49] LABS: Estimated Average Glucose 117 mg/dL; Hemoglobin A1c % 5.7 %
[2021-08-23 18:13] LABS: Alanine Aminotransferase 14 U/L (0-31); Albumin Level 3.9 g/dL (3.5-5.0); Alkaline Phosphatase 74 U/L (39-117); Amylase 66 U/L (28-100); Anion Gap 12 (12-20); Aspartate Amino Transferase 15 U/L (5-31); Bilirubin Total 0.3 mg/dL (0.0-1.0); Blood Urea Nitrogen 12 mg/dL (9-16); Calcium 9.2 mg/dL (8.4-10.2); Carbon Dioxide 22 mmol/L (22-29); Chloride 105 mmol/L (96-108); Estimated Glomerular Filt Rate > 60; Glucose Random 111 mg/dL (60-115); Sodium 135 mmol/L (135-145); Total Protein 8.1 g/dL (6.5-8.0)
== END 2021-08-23 15:39 | disposition home or self-care (01) ==
LOC: HO.LAB 15:38
PROVIDERS: Visit Provider Surgery
DX: K80.20 Calculus of gallbladder without cholecystitis without obstruction (principal); R11.0 Nausea; R73.03 Prediabetes
CPT/HCPCS: 36415; 80053; 82150; 83036; 99212

== ENCOUNTER 2021-09-05 15:16 | Emergency (ER) | payer OTHER, SELFPAY ==
--- NOTE | ~2021-09-05 | XR_ITS ---
EXAMINATION: XR CHEST CLINICAL INFORMATION: Shortness of breath COMPARISON: 06/21/2019 TECHNIQUE: Frontal view of the chest was obtained. FINDINGS: Lungs are clear. No consolidation, pneumothorax, or pleural effusion. Cardiac and mediastinal contours are normal. Pulmonary vasculature is unremarkable. Trachea is midline. Osseous structures are unremarkable. XR/XR chest 1V IMPRESSION: Normal chest radiograph
--- NOTE | ~2021-09-05 | US_ITS ---
EXAMINATION: US ABDOMEN LIMITED CLINICAL INFORMATION: Gallstone. COMPARISON: 08/18/2021 TECHNIQUE: Real-time imaging of the right upper quadrant abdominal viscera. FINDINGS: GALLBLADDER: A gallstone is visualized in the gallbladder fundus. Gallbladder wall thickness appears within normal limits. No pericholecystic fluid is seen. COMMON BILE DUCT: Normal in caliber measuring 0.4 cm in diameter. US/US abdomen limited IMPRESSION: Cholelithiasis without additional findings of cholecystitis.
[2021-09-05 16:51] VITALS: BP 147/79; PULSE 87; RESP 18; TEMP 37.1; O2SAT 100; BMI 37.6
[2021-09-05 17:46] LABS: UPreg QC Valid YES; Urine Pregnancy NEGATIVE (NEGATIVE)
[2021-09-05 17:52] LABS: Appearance Urine HAZY; Color Urine YELLOW; Glucose Urine UA NEG (NEG); Leukocyte Esterase Urine NEG (NEG); Nitrite Urine NEG (NEG); Specific Gravity - Urine >= 1.030 (1.005-1.025); UACC Culture Trigger NO; Urine Blood TRACE (NEG); Urine Ketones NEG (NEG); Urine Protein 1+ MG/DL (NEG-TRACE)
[2021-09-05 18:29] LABS: COVID-19 Test Negative (Negative)
[2021-09-05 18:34] LABS: Bacteria Urine 1+ /LPF; Squamous Epithelial Cell Urine 3+ /LPF; WBC Urine 0 /HPF (0-4)
[2021-09-05 18:35] LABS: Calcium Oxalate Crystals Urine 3+ /LPF
[2021-09-05 20:21] LABS: MANUAL DIFF FLAG NO
[2021-09-05] MEDS: Acetaminophen 325 MG TABLET 650 MG PO (20:21)
[2021-09-05 20:23] LABS: Basophils Percent Auto 0.4 % (0-2); Eosinophils Absolute Auto 0.1 X10*3/uL (0.0-0.4); Eosinophils Percent Auto 1.8 % (0-4); Hematocrit 40.1 % (37.0-47.0); Hemoglobin 12.5 g/dl (12.0-16.0); Imm Gran Abs Auto 0.03 X10*3/uL (0.00-0.03); Imm Gran Pct Auto 0.4 % (0.0-0.4); Lymphocytes Absolute Auto 2.5 X10*3/uL (1.2-4.9); Lymphocytes Percent Auto 34.8 % (20-40); Mean Corpuscular HGB Conc 31.2 g/dl (31.0-35.0); Mean Corpuscular Hemoglobin 26.5 pg (27.0-33.0); Mean Platelet Volume 10.1 fL (9.4-12.3); Monocytes Absolute Auto 0.3 X10*3/uL (0.1-1.2); Monocytes Percent Auto 3.7 % (2-11); Neutrophils Absolute Auto 4.3 x10*3/uL (2.0-8.3); Neutrophils Percent Auto 58.9 % (45-73); Platelet Count 223 X10*3/uL (160-400); Red Blood Count 4.72 X10*6/uL (4.20-5.50); Red Cell Distribution Width 16.2 % (11.0-16.0); White Blood Count 7.2 X10*3/uL (4.8-10.8)
[2021-09-05 20:59] LABS: Alanine Aminotransferase 17 U/L (0-31); Alkaline Phosphatase 79 U/L (39-117); Anion Gap 12 (12-20); Aspartate Amino Transferase 21 U/L (5-31); Bilirubin Total 0.2 mg/dL (0.0-1.0); Blood Urea Nitrogen 9 mg/dL (9-16); Carbon Dioxide 23 mmol/L (22-29); Chloride 105 mmol/L (96-108); Creatinine Clr Calc Pharmacy 124.7; Estimated Glomerular Filt Rate > 60; Glucose Random 85 mg/dL (60-115); Lipase 27 U/L (8-78); Sodium 136 mmol/L (135-145); Total Protein 8.3 g/dL (6.5-8.0)
[2021-09-06 01:08] VITALS: BP 169/82; PULSE 88; RESP 18; TEMP 37; O2SAT 97
--- NOTE | 2021-09-06 01:11 | ED.SOB ---
HPI - SOB/Dyspnea General Chief Complaint: Dyspnea Stated Complaint: Diff Breathing Time Seen by Provider: 09/06/21 01:11 Source: patient Mode of arrival: ambulatory Limitations: no limitations History of Present Illness HPI Narrative: Patient with history of gallstone 1.2 x 1.6 cm was seen here on 08/18 at that time patient had pain and ultrasound was done. Patient been having this pain for many years off and on and for last few days getting worse. Patient has seen the surgeon advised medical treatment but patient pain is getting worse now unable to eat and very nauseated since last night no fever no chills patient failed pain that radiated to the right upper back. No urinary complaints no abdominal distension Related Data Home Medications Medication Instructions Recorded Confirmed ferrous sulfate 325 mg (65 mg 325 mg PO DAILY 07/28/21 08/23/21 iron) tablet,delayed release Previous Rx's Medication Instructions Recorded cyclobenzaprine 10 mg tablet 10 mg PO TID PRN muscle spasm #14 08/24/20 tabs ibuprofen 600 mg tablet 600 mg PO Q6H PRN pain #60 tabs 08/24/20 albuterol sulfate 90 mcg/actuation 1 inh inhalation QID PRN shortness 06/20/21 aerosol inhaler of breath or wheezing #6.7 grams azithromycin 250 mg tablet See Rx Instructions PO .COMPLEX #6 06/20/21 (Zithromax Z-Karel) tabs prednisone 10 mg tablet 10 mg PO BID #6 tabs 06/20/21 cyclobenzaprine 10 mg tablet 10 mg PO TID PRN muscle spasm #10 07/15/21 tabs lidocaine 5 % topical patch 1 patch topical DAILY #15 ea 07/15/21 (Lidoderm) naproxen 500 mg tablet 500 mg PO BID PRN pain #20 tabs 07/15/21 Allergies Allergy/AdvReac Type Severity Reaction Status Date / Time No Known Allergies Allergy Verified 09/05/21 16:51 Review of Systems Review of Systems: Yes all other systems are reviewed and are negative PMFSH Past Medical History Medical History Kidney calculi Social History Social History Alcohol intake: never Patient Tobacco Use Status: Never used Tobacco Use of substances other than those prescribed or required for medical reasons: No Patient : No Physical Exam Vital Signs: Vital Signs: Last Vital Signs Temp 98.6 F 09/06/21 01:08 Pulse 88 09/06/21 01:08 Resp 18 09/06/21 01:08 BP 169/82 H 09/06/21 01:08 Pulse Ox 97 09/06/21 01:08 O2 Del Method 09/06/21 01:08 BMI result Body Mass Index 37.6 Appearance: Alert. Oriented X3. No acute distress. Eyes: No pallor or icterus ENT: Pharynx normal. Oral Mucosa moist Neck: Normal inspection. Neck supple. CVS: Normal heart rate and rhythm. Pulses normal. Respiratory: No respiratory distress. Equal air entry bilateral, no wheezing/rales/rhonchi Abdomen: Soft , deep tenderness right upper quadrant with Santana sign positive Bowel sounds are present, no mass palpable, no CVA tenderness Skin: Skin warm and dry. Normal skin color. Normal skin turgor. Extremities: No lower extremity edema. No calf tenderness Neuro: Oriented X 3. MDM - SOB/Dyspnea MDM Narrative Medical decision making narrative: 0125 Patient with right upper quadrant tenderness with Santana sign positive with history of large gallstone normal WBC normal LFTs patient uncomfortable at this time. Will give patient IV morphine Zofran IV fluids and get an ultrasound to rule out gallbladder neck obstruction patient subjectively shortness of breath chest x-ray negative saturating 99% room air shortness of breath is from the pain Lab Data Attestation: I reviewed the patient's lab results. Result diagrams: 09/05/21 20:17 09/05/21 20:17 Labs: Lab Results 09/05/21 09/05/21 09/05/21 Range/Units 17:02 17:03 17:04 WBC (4.8-10.8) X10*3/uL RBC (4.20-5.50) X10*6/uL Hgb (12.0-16.0) g/dl Hct (37.0-47.0) % MCV (80.0-98.0) fL MCH (27.0-33.0) pg MCHC (31.0-35.0) g/dl RDW (11.0-16.0) % Plt Count (160-400) X10*3/uL MPV (9.4-12.3) fL Immature Gran % (Auto) (0.0-0.4) % Neut % (Auto) (45-73) % Lymph % (Auto) (20-40) % [place] % (Auto) (2-11) % Eos % (Auto) (0-4) % Baso % (Auto) (0-2) % Lymph # (Auto) (1.2-4.9) X10*3/uL [place] # (Auto) (0.1-1.2) X10*3/uL Eos # (Auto) (0.0-0.4) X10*3/uL Baso # (Auto) (0.0-0.2) X10*3/uL Abs Immat Gran (auto) (0.00-0.03) X10*3/uL Absolute Neuts (auto) (2.0-8.3) x10*3/uL Absolute Nucleated RBC (0.0-0.012) X10*3/uL Nucleated RBC % (auto) (0.0-0.2) /100WBC Sodium (135-145) mmol/L Potassium (3.3-5.1) mmol/L Chloride (96-108) mmol/L Carbon Dioxide (22-29) mmol/L Anion Gap (12-20) BUN (9-16) mg/dL Creatinine (0.5-1.4) mg/dL Estim Creat Clear Calc Estimated GFR Random Glucose (60-115) mg/dL Calcium (8.4-10.2) mg/dL Total Bilirubin (0.0-1.0) mg/dL AST (5-31) U/L ALT (0-31) U/L Alkaline Phosphatase (39-117) U/L Total Protein (6.5-8.0) g/dL Albumin (3.5-5.0) g/dL Lipase (8-78) U/L Urine Color YELLOW Urine Appearance HAZY Urine pH 6.0 (5.0-8.0) Ur Specific [place] >= 1.030 H (1.005-1.025) Urine Protein 1+ H (NEG-TRACE) MG/DL Urine Glucose (UA) NEG (NEG) MG/DL Urine Ketones NEG (NEG) MG/DL Urine Blood TRACE (NEG) Urine Nitrite NEG (NEG) Ur Leukocyte Esterase NEG (NEG) Urine RBC 1-4 (0) /HPF Urine WBC 0 (0-4) /HPF Ur Squamous Epith Cells 3+ /LPF Calcium Oxalate Crystal 3+ /LPF Urine Bacteria 1+ /LPF Urine Test NEGATIVE (NEGATIVE) COVID-19 (JAMAL) Negative (Negative) COVID-19 Clin Com See Note 09/05/21 09/05/21 Range/Units 20:17 20:17 WBC 7.2 (4.8-10.8) X10*3/uL RBC 4.72 (4.20-5.50) X10*6/uL Hgb 12.5 (12.0-16.0) g/dl Hct 40.1 (37.0-47.0) % MCV 85.0 (80.0-98.0) fL MCH 26.5 L (27.0-33.0) pg MCHC 31.2 (31.0-35.0) g/dl RDW 16.2 H (11.0-16.0) % Plt Count 223 D (160-400) X10*3/uL MPV 10.1 (9.4-12.3) fL Immature Gran % (Auto) 0.4 (0.0-0.4) % Neut % (Auto) 58.9 (45-73) % Lymph % (Auto) 34.8 (20-40) % [place] % (Auto) 3.7 (2-11) % Eos % (Auto) 1.8 (0-4) % Baso % (Auto) 0.4 (0-2) % Lymph # (Auto) 2.5 (1.2-4.9) X10*3/uL [place] # (Auto) 0.3 (0.1-1.2) X10*3/uL Eos # (Auto) 0.1 (0.0-0.4) X10*3/uL Baso # (Auto) 0.0 (0.0-0.2) X10*3/uL Abs Immat Gran (auto) 0.03 (0.00-0.03) X10*3/uL Absolute Neuts (auto) 4.3 (2.0-8.3) x10*3/uL Absolute Nucleated RBC 0.000 (0.0-0.012) X10*3/uL Nucleated RBC % (auto) 0.0 (0.0-0.2) /100WBC Sodium 136 (135-145) mmol/L Potassium 4.0 (3.3-5.1) mmol/L Chloride 105 (96-108) mmol/L Carbon Dioxide 23 (22-29) mmol/L Anion Gap 12 (12-20) BUN 9 (9-16) mg/dL Creatinine 0.66 (0.5-1.4) mg/dL Estim Creat Clear Calc 124.7 Estimated GFR > 60 Random Glucose 85 (60-115) mg/dL Calcium 9.0 (8.4-10.2) mg/dL Total Bilirubin 0.2 (0.0-1.0) mg/dL AST 21 (5-31) U/L ALT 17 (0-31) U/L Alkaline Phosphatase 79 (39-117) U/L Total Protein 8.3 H (6.5-8.0) g/dL Albumin 4.0 (3.5-5.0) g/dL Lipase 27 (8-78) U/L Urine Color Urine Appearance Urine pH (5.0-8.0) Ur Specific [place] (1.005-1.025) Urine Protein (NEG-TRACE) MG/DL Urine Glucose (UA) (NEG) MG/DL Urine Ketones (NEG) MG/DL Urine Blood (NEG) Urine Nitrite (NEG) Ur Leukocyte Esterase (NEG) Urine RBC (0) /HPF Urine WBC (0-4) /HPF Ur Squamous Epith Cells /LPF Calcium Oxalate Crystal /LPF Urine Bacteria /LPF Urine Test (NEGATIVE) COVID-19 (JAMAL) (Negative) COVID-19 Clin Com Discharge Plan Discharge Clinical Impression: Gallstone Patient Disposition: Still a Patient Prescriptions: No Action cyclobenzaprine 10 mg tablet 10 mg PO TID PRN (Reason: muscle spasm) Qty: 14 0RF ibuprofen 600 mg tablet 600 mg PO Q6H PRN (Reason: pain) Qty: 60 0RF prednisone 10 mg tablet 10 mg PO BID Qty: 6 0RF azithromycin [Zithromax Z-Karel] 250 mg tablet See Rx Instructions .ROUTE .COMPLEX Qty: 6 0RF Rx Instructions: For 250 mg dose pack: take 500 mg today (day 1), then 250 mg for 4 days (days 2-5) albuterol sulfate 90 mcg/actuation HFA aerosol inhaler 1 inh inhalation QID PRN (Reason: shortness of breath or wheezing) Qty: 6.7 0RF cyclobenzaprine 10 mg tablet 10 mg PO TID PRN (Reason: muscle spasm) Qty: 10 0RF lidocaine [Lidoderm] 5 % adhesive patch,medicated 1 patch topical DAILY Qty: 15 0RF Rx Instructions: leave on most painful area for up to 12 hrs naproxen 500 mg tablet 500 mg PO BID PRN (Reason: pain) Qty: 20 0RF ferrous sulfate 325 mg (65 mg iron) tablet,delayed release (DR/EC) 325 mg PO DAILY
[2021-09-06] MEDS: ondansetron HCL 4 MG/2 ML VIAL IVPUSH (01:54)
[2021-09-06] MEDS: Morphine Sulfate 4 MG/ML CARTRIDGE IVPUSH (01:55)
--- NOTE | 2021-09-06 02:42 | PC.NURSE ---
20G placed left hand, medicated w IV zofran and morphine, line infiltrated after flush. IV discontinued. multiple attempts at IV placement by two other nurses with no success. ok to not administer ivf per provider. pt to US.
[2021-09-06 04:00] VITALS: BP 143/104; PULSE 86; RESP 16; TEMP 36.8; O2SAT 100
--- NOTE | 2021-09-06 05:27 | PC.NURSE ---
pt states her RUQ abd pain is coming back and is a 8/10 with nausea. provider made aware.
== END 2021-09-06 05:53 | disposition home or self-care (01) ==
PROVIDERS: Emergency Provider Internal Medicine; PCP Internal Medicine
DX: K80.20 Calculus of gallbladder without cholecystitis without obstruction (principal); R06.00 Dyspnea, unspecified; R10.11 Right upper quadrant pain; Z20.822 Contact with and (suspected) exposure to COVID-19; E66.01 Morbid (severe) obesity due to excess calories; Z68.37 Body mass index [BMI] 37.0-37.9, adult; Z87.442 Personal history of urinary calculi
CPT/HCPCS: 71045; 76705; 80053; 81001; 81025; 83690; 85025; 87635; 96361; 96374; 96375; 99284; J2270; J2405

== ENCOUNTER → 2021-09-21 09:50 | Outpatient (BNVA) | payer OTHER, SELFPAY | PROVIDERS: PCP Internal Medicine; Visit Provider Surgery | DX: K80.20 Calculus of gallbladder without cholecystitis without obstruction (principal) | CPT/HCPCS: 99212 ==

== ENCOUNTER 2021-10-03 05:46 | Day surgery (SDC) | payer OTHER, SELFPAY ==
[2021-09-27 11:40] VITALS: BMI 37.8
--- NOTE | 2021-10-02 08:22 | HO.ANESPROP2 ---
Documented by User: Jeanine Malone NP 10/02/21 08:22 HPI - Anesthesia Eval Consult details Narrative: 46yo F for Cholecystectomy Laparoscopic, possible open PMFSH Active Problems Active Problems: All Active Problems (Updated 09/27/21 @ 11:40 by Amy Palomino, RN) Complete (Acute) Gallstone (Acute) Morbid (severe) obesity due to excess calories (Acute) Pre-diabetes (Acute) Dysmenorrhea (Acute) Menorrhagia (Acute) Regurgitation of food (Acute) Right arm weakness (Acute) Lumbar back pain (Acute) Past Medical History Medical History (Updated 09/27/21 @ 11:40 by Amy Palomino, RN) Anemia Kidney calculi Low back pain Obesity Surgical History Surgical History (Updated 09/27/21 @ 11:40 by Amy Palomino RN) History of section No pertinent past surgical history Social History Social History Are you a primary customer care professional to a significant other at home: No Do you presently have visiting nurse or other home services: No Alcohol intake: never Patient Tobacco Use Status: Never used Tobacco Use of substances other than those prescribed or required for medical reasons: No Have you been hit, kicked, punched, or otherwise hurt by someone within the past year? If so, by whom?: No Are you DNR?: No Advance Directives: No Advance Directives Information Provided: Yes Advance Directives on File: No Recently lost weight without trying: No Eating poorly because of decreased appetite: No Nutrition Risks: No Nutritional Risk Patient : No Meds Allergies Allergy/AdvReac Type Severity Reaction Status Date / Time No Known Allergies Allergy Verified 09/27/21 11:26 Home Medications Medication Instructions Recorded Confirmed Last Taken Type ferrous sulfate 325 mg (65 mg 325 mg PO DAILY 07/28/21 10/03/21 09/03/21 History iron) tablet,delayed release Exam Exam Date and Time: October 02, [id number] Height,Weight and Vital Signs: Height 5 ft 4 in Weight 99.79 kg Pertinent Lab Results Pertinent Lab Results: Laboratory Tests 09/05/21 09/05/21 20:17 20:17 WBC 7.2 Hgb 12.5 Hct 40.1 Plt Count 223 D Sodium 136 Potassium 4.0 Chloride 105 Carbon Dioxide 23 BUN 9 Creatinine 0.66 Narrative Narrative: EKG 05/2021 Vent. Rate : 089 BPM ? ? Atrial Rate : 089 BPM ?? P-R Int : 126 ms? QRS Dur : 088 ms ? ? QT Int : 362 ms ? ? ? P-R-T Axes : 053 039 033 degrees ?? QTc Int : 440 ms ? Normal sinus rhythm Normal ECG No previous ECGs available Assessment and Plan Assessment Anesthesia Assessment: Chart Reviewed Documented by User: Brandon Boo MD 10/03/21 07:24 PMFSH Past Medical History Medical History (Updated 09/27/21 @ 11:40 by Amy Palomino RN) Anemia Kidney calculi Low back pain Obesity Patient : No Family History Family history of problems with anesthesia: No Surgical History Surgical History (Updated 09/27/21 @ 11:40 by Amy Palomino RN) History of section No pertinent past surgical history History of Problems with Anesthesia: No Social History Social History Are you a primary customer care professional to a significant other at home: No Do you presently have visiting nurse or other home services: No Alcohol intake: never Patient Tobacco Use Status: Never used Tobacco Use of substances other than those prescribed or required for medical reasons: No Have you been hit, kicked, punched, or otherwise hurt by someone within the past year? If so, by whom?: No Are you DNR?: No Advance Directives: No Advance Directives Information Provided: Yes Advance Directives on File: No Recently lost weight without trying: No Eating poorly because of decreased appetite: No Nutrition Risks: No Nutritional Risk Patient : No Meds Allergies Allergy/AdvReac Type Severity Reaction Status Date / Time No Known Allergies Allergy Verified 09/27/21 11:26 Home Medications Medication Instructions Recorded Confirmed Last Taken Type ferrous sulfate 325 mg (65 mg 325 mg PO DAILY 06/0310/03/21 09/03/21 History iron) tablet,delayed release Exam Airway Mallampati Class: II TM Dist: >3cm Neck ROM: Full Loose/Missing/Broken Teeth: No Heart: ok Lungs: ok Assessment and Plan Assessment Anesthesia Assessment: Anesthesia Plan Discussed and Chart Reviewed Final Anesthetic Review Family History of Problems with Anesthesia: No History of Problems with Anesthesia: No NPO: Yes ASA Class: II and III Final Preanesthetic Review: No Changes in Pt Med Stat, Meds/Allgs Chart Reviewed, Consent Obtained/Reviewed and Anes Risks/Benef Reviewed Patient Risk: Intermediate Procedure Risk: Intermediate Anesthetic Plan Anesthetic Plan: GA and Agree w/ Assess. and Plan Disposition: Standard PACU
[2021-10-03] VITALS (15 sets, daily range): BP systolic 128–152; BP diastolic 56–116; PULSE 65–92; RESP 14–18; TEMP 36.1–36.6; O2SAT 96–100
[2021-10-03 06:48] LABS: UPreg QC Valid YES; Urine Pregnancy NEGATIVE (NEGATIVE)
--- NOTE | 2021-10-03 07:12 | MHC.SHP ---
Pre-Procedural Eval Section A Date of Service: 10/03/21 The patient is an INPATIENT: No Changes since office visit: No Cold of Flu in the past 2 weeks, No New Medical Problems, No Changes in Medication and No Patient answered all questions The History & Physical has been completed within 30 days and I have reviewed it.: Yes Section B Chief Complaint: gallstones Allergies: Allergies Allergy/AdvReac Type Severity Reaction Status Date / Time No Known Allergies Allergy Verified 09/27/21 11:26 Plan I have reviewed the history and physical and performed a pertinent physical examination on my patient. No changes have occurred unless specified.
[2021-10-03] MEDS: Lactated Ringers 1,000 ML 100 ML IVCONT (07:19)
[2021-10-03] MEDS: Acetaminophen 325 MG TABLET 650 MG PO (07:25)
--- NOTE | 2021-10-03 08:25 | P.OP_ITS ---
Operative Note Operative Note Date of Service: 10/03/21 Narrative: Preop diagnosis: Symptomatic gallstones Postop diagnosis: Symptomatic gallstones Procedure: Laparoscopic cholecystectomy Surgeon: Beto Arana MD 1st wet process miller head assistant: EILEEN Carrizales The patient is a 46-year-old female with periodic right upper quadrant pain and tenderness with gallstones on imaging studies. Her symptoms, she wanted to proceed with cholecystectomy. She understood the technique of laparoscopic cholecystectomy. She was aware of the risks, benefits, and alternatives She was brought to the operating room. She was placed supine under general anesthesia via endotracheal tube. The abdomen was prepped and draped in the usual sterile fashion. A surgical time-out was done. The patient received Cefotan 2 g IV preoperatively I made a short supraumbilical incision using blade 15. This was carried down with blunt dissection through the full-thickness of the skin subcutaneous fat down to the fascia. The patient was morbidly obese so I had to go through a thick amount of subcutaneous fat before we able to reach the fascia. Fascia was incised. The peritoneum was entered. Through this incision a Buck port was introduced. Pneumoperitoneum was introduced to a pressure of 15 mm hg. From here on the rest of the procedure was done under vision with the 10 mm 0 degree laparoscoped With laparoscopic visualization, I placed a 5/12 mm port in the epigastric area below the subcostal margin. Two 5 mm ports introduced a small incisions below the subcostal margin along the anterior axillary line and the midclavicular line. Graspers were placed through these working ports. The patient was placed in head-up and [id number] position. The gallbladder was seen. This was supple and not inflamed. I was able to apply a grasper at the fundus and this was used to retract the gallbladder cephalad. Another grasper was applied at the pouch of the gallbladder and this was used to retract the gallbladder laterally. At this point therefore the gallbladder was being retracted in cephalad and lateral fashion to put the cystic duct on stretch. I carefully dissected the neck of the gallbladder with the [place] dissector to carefully tease off at the are all tissue until was able to visualize the cystic duct. I carefully dissected the cystic duct circumferentially until was able to clearly its confluence of the neck of the gallbladder. The cystic duct was therefore cl ipped with 2 clips applied distally. The cystic duct was transected between clips with Endo scissors Carefully dissected the cystic artery as well until I was able to clearly define this. This was clipped and transected between clips with Endo scissors. Two clips were at the distal I then proceeded to retract the gallbladder carefully away from the liver bed. The hilum was then clearly seen and was incised with the electrocautery spatula. I reached the interface of the gallbladder wall and the liver bed. I used the electrocautery spatula to incise the peritoneum. I then proceeded to carefully define a plane of dissection between the gallbladder wall and the liver bed using a combination of blunt dissection with the tip of the spatula and electrocautery itself. I the gallbladder from the liver along this well-defined plane of dissection all the way to the fundus until the entire gallbladder was completely from the liver bed I retrieved the gallbladder through an endobag through the epigastric incision I desufflated and examined the subhepatic space laparoscopically. The clips were intact. There is no evidence of any bleeding. There was no evidence of any bile leak I examined all 4 quadrants laparoscopically. There were no signs of any other pathology or any injury. Once hemostasis was confirmed I proceeded to desufflate the port sites. I removed all ports under vision with the laparoscopic I closed the fascia of the umbilical incision with a [id number] Dexon 0 stitch. Skin closure was achieved on all incisions using Dexon 4-0 subcuticular running sutures. Steri-Strips and dressings were applied. All incisions were infiltrated with Marcaine 0.5% for postop analgesia. The procedure was then completed The patient tolerated procedure well. There were no complications noted. Initial and final counts of sponges and instruments were correct. Estimated blood loss was about 25 cc . The patient was extubated without difficulty and transferred to the recovery room with stable vital signs.
[2021-10-03] MEDS: oxyCODONE HCl Immed Release 5 MG TABLET PO ×2 (08:57→09:14)
[2021-10-03] MEDS: fentaNYL citrate/PF 100 MCG/2 ML VIAL 50 MCG IVPUSH ×2 (08:58→09:28)
== END 2021-10-03 11:20 | disposition home or self-care (01) ==
PROVIDERS: Nurse Practitioner; PCP Internal Medicine; Visit Provider Surgery
PROC: 0FT44ZZ Resection of Gallbladder, Percutaneous Endoscopic Approach (ICD-10-PCS; CPT 47562; principal; 2021-10-03 07:30)
DX: K80.10 Calculus of gallbladder with chronic cholecystitis without obstruction (principal); E66.01 Morbid (severe) obesity due to excess calories; Z68.37 Body mass index [BMI] 37.0-37.9, adult; Z79.899 Other long term (current) drug therapy; Z79.1 Long term (current) use of non-steroidal anti-inflammatories (NSAID); Z87.442 Personal history of urinary calculi; Z90.49 Acquired absence of other specified parts of digestive tract
CPT/HCPCS: 47562; 81025; 88304; J1100; J1885; J2250; J2405; J2795; J3010

== ENCOUNTER 2023-01-28 09:17 | Emergency (ER) | payer OTHER, SELFPAY ==
--- NOTE | ~2023-01-28 | CT_ITS ---
EXAMINATION: CT ABDOMEN AND PELVIS WITHOUT CONTRAST CLINICAL INFORMATION: abd pain, LLQ, rectal bleeding. COMPARISON: 07/15/2021 CT scan. TECHNIQUE: Multidetector volumetric imaging was performed from the superior aspect of the liver through the pubic symphysis without contrast per renal stone protocol. Sagittal and coronal reformatted images were obtained on the technologist workstation. This CT examination was performed using dose optimization techniques as appropriate, variously including the following: *Automated exposure control *Adjustment of mA and/or kV according to patient size (this includes techniques or standardized protocols for targeted exams where dose is matched to indication/reason for exam; i.e. extremities or head) *Use of iterative reconstruction technique DLP: 897 mGy-cm. FINDINGS: LUNG BASES: Minimal dependent atelectasis at the right lung base LIVER, GALLBLADDER, BILIARY TREE: Diffuse low-attenuation liver suggesting underlying fatty infiltration. There is a low-attenuation region in posterior segment 7 of the liver measuring approximately 1.6 cm in diameter likely representing a small cyst similar to the 07/15/[address] scan. No biliary ductal dilatation. The gallbladder surgically absent. PANCREAS: Unremarkable. SPLEEN: Unremarkable. ADRENAL GLANDS: Unremarkable. KIDNEYS AND URETERS: Nonobstructed 3 mm calculi in the mid to upper pole collecting system of the left kidney with a nonobstructing 2 to 3 mm calculi in the lower pole collecting system of the left kidney. No right-sided intrarenal calculi. No hydronephrosis or perinephric stranding. I do not appreciate any ureteric calculi on the examination. BLADDER: Decompressed but otherwise unremarkable. GASTROINTESTINAL TRACT: Colonic diverticulosis but no focal colonic wall thickening or pericolonic inflammatory change to suggest diverticulitis. Visualized small bowel unremarkable. ABDOMINAL WALL: No significant hernia is appreciated. LYMPHOVASCULAR STRUCTURES: No lymphadenopathy. The aorta is unremarkable.. PELVIC VISCERA: Unremarkable. OSSEUS STRUCTURES: Unremarkable. CT/CT abdomen pelvis wo IV con IMPRESSION: Chronic appearing changes as described above. I do not appreciate any acute intra-abdominal process.
[2023-01-28 09:26] VITALS: BP 152/90; PULSE 98; RESP 16; TEMP 36; O2SAT 100; BMI 41.2
[2023-01-28 12:08] VITALS: BP 144/88; PULSE 93; RESP 14; O2SAT 99
[2023-01-28 12:23] LABS: MANUAL DIFF FLAG NO
[2023-01-28 12:24] LABS: Basophils Percent Auto 0.4 % (0-2); Eosinophils Absolute Auto 0.1 X10*3/uL (0.0-0.4); Eosinophils Percent Auto 1.4 % (0-4); Hematocrit 31.8 % (37.0-47.0); Imm Gran Abs Auto 0.04 X10*3/uL (0.00-0.03); Imm Gran Pct Auto 0.6 % (0.0-0.4); Lymphocytes Absolute Auto 2.8 X10*3/uL (1.2-4.9); Lymphocytes Percent Auto 38.5 % (20-40); Mean Corpuscular HGB Conc 31.4 g/dl (31.0-35.0); Mean Corpuscular Hemoglobin 25.6 pg (27.0-33.0); Mean Corpuscular Volume 81.3 fL (80.0-98.0); Mean Platelet Volume 9.4 fL (9.4-12.3); Monocytes Absolute Auto 0.4 X10*3/uL (0.1-1.2); Neutrophils Absolute Auto 3.9 x10*3/uL (2.0-8.3); Neutrophils Percent Auto 54.1 % (45-73); Platelet Count 254 X10*3/uL (160-400); Red Blood Count 3.91 X10*6/uL (4.20-5.50); Red Cell Distribution Width 16.8 % (11.0-16.0); White Blood Count 7.2 X10*3/uL (4.8-10.8)
[2023-01-28 12:44] LABS: Alanine Aminotransferase 23 U/L (0-31); Albumin Level 3.7 g/dL (3.5-5.0); Alkaline Phosphatase 74 U/L (39-117); Anion Gap 11 (12-20); Aspartate Amino Transferase 31 U/L (5-31); Bilirubin Total 0.2 mg/dL (0.0-1.0); Blood Urea Nitrogen 9 mg/dL (9-16); Calcium 8.6 mg/dL (8.4-10.2); Carbon Dioxide 23 mmol/L (22-29); Chloride 108 mmol/L (96-108); Creatinine Clr Calc Pharmacy 122.3; Estimated Glomerular Filt Rate > 60; Glucose Random 108 mg/dL (60-115); Potassium 3.4 mmol/L (3.3-5.1); Sodium 139 mmol/L (135-145); Total Protein 8.1 g/dL (6.5-8.0)
[2023-01-28 13:05] LABS: Influenza A PCR NEGATIVE (Negative); Influenza B PCR NEGATIVE (Negative); Resp Syncy Virus RNA Qual PCR NEGATIVE (Negative); SARS COV2 PCR INHOUSE NEGATIVE (Negative)
--- NOTE | 2023-01-28 15:51 | ED.GENADULT ---
HPI - General Adult General Chief complaint: Abdominal Pain Stated complaint: abd pain Source: patient Mode of arrival: ambulatory Limitations: no limitations History of Present Illness HPI narrative: Patient is a 47 year old assigned female at with a history of kidney stones presenting to the emergency department today with left lower abdominal pain and bright red blood in her stools. Patient states that since 01/21/2023 she has been having abdominal pain and bright red blood in her stools. Patient states that she was seen at [facility] and told everything was OK. Patient denies any dizziness, lightheadedness, nausea, vomiting, fever, chills, blurry vision, double vision, loss of vision, chest pain, difficulty breathing, shortness of breath, back pain, night sweats, pain with urination, increased urinary frequency, increased urinary urgency, blood in her urine, syncope or a near syncopal episode, recent trauma or falls, bowel incontinence, bladder incontinence, bowel retention, bladder retention, or any other complaints at this time. Onset (ago): week(s) (1) Location: abdomen Severity: mild Severity scale (1-10): 3 Quality: aching and dull Pain Consistency: constant Relieving factors: none Exacerbating factors: none Associated symptoms: denies other symptoms Treatments prior to arrival: none Related Data Home Medications Medication Instructions Recorded Confirmed ferrous sulfate 325 mg (65 mg 325 mg PO DAILY 07/28/21 10/19/21 iron) tablet,delayed release Previous Rx's Medication Instructions Recorded ibuprofen 600 mg tablet 600 mg PO Q6H PRN pain #60 tabs 08/24/20 albuterol sulfate 90 mcg/actuation 1 inh inhalation QID PRN shortness 06/20/21 aerosol inhaler of breath or wheezing #6.7 grams cyclobenzaprine 10 mg tablet 10 mg PO TID PRN muscle spasm #10 07/15/21 tabs oxycodone-acetaminophen 5 mg-325 1 tab PO Q4-6H PRN pain #30 tabs 10/03/21 mg tablet (Percocet) Allergies Allergy/AdvReac Type Severity Reaction Status Date / Time No Known Allergies Allergy Verified 01/28/23 09:30 Review of Systems Constitutional: Constitutional: Reports no additional constitutional complaints, Denies chills, Denies fever(s) and Denies night sweats Eyes: Eyes: Reports no additional eye complaints, Denies blurry vision, Denies change in vision, Denies diplopia, Denies eye discharge, Denies loss of vision and Denies eye pain ENT: Denies dizziness Cardiovascular: Cardiovascular: Reports no additional cardiovascular complaints, Denies chest pain, Denies lightheadedness, Denies Loss of Consciousness and Denies dyspnea Respiratory: Respiratory: Reports no additional respiratory complaints and Denies dyspnea Gastrointestinal: Gastrointestinal: Reports no additional gastrointestinal complaints, Reports abdominal pain, Denies melena, Reports hematochezia, Denies change in bowel habits and Reports change in stool character Genitourinary: Genitourinary: Denies hematuria, Denies urinary frequency, Denies dysuria, Denies urinary incontinence, Denies urinary hesitancy and Denies urinary urgency Musculoskeletal: Musculoskeletal: Reports no additional musculoskeletal complaints, Denies numbness and Denies tingling Neurologic: Denies dizziness, Denies loss of vision, Denies numbness and Denies tingling Psychiatric: Psychiatric: Reports no additional psychiatric complaints Endocrine: Endocrine: Reports no additional endocrine complaints Hematologic/Lymphatic: Hematologic/Lymphatic: Reports no additional hematologic/lymphatic complaints Allergic/Immunologic: Allergic/Immunologic: Reports no additional allergic/immunologic complaints [facility] Past Medical History Attestation statement: The following information was validated with the patient. Source: old records reviewed and nursing notes reviewed Medical History Right arm weakness Morbid (severe) obesity due to excess calories Anemia Low back pain Obesity Kidney calculi Surgical History History of laparoscopic cholecystectomy History of section No pertinent past surgical history Social History Social History Are you a primary customer care associate to a significant other at home: No Do you presently have visiting nurse or other home services: No Alcohol intake: never Patient Tobacco Use Status: Never used Tobacco Advance Directives: No Physical Exam ED Vital Signs: Vital Signs - 24 hr 01/28/23 09:26 01/28/23 12:08 Temperature 96.8 F Pulse Rate 98 93 Respiratory Rate 16 14 Blood Pressure 152/90 H 144/88 H Pulse Oximetry 100 99 Oxygen Delivery Method Room Air Room Air BMI result Body Mass Index 41.2 Const General: cooperative, no acute distress, alert and awake Nutritional Appearance: well nourished Orientation/consciousness: patient oriented x3 Limitations: no limitations HENMT Head: Yes normal to inspection and Yes atraumatic Ears: hearing grossly normal bilaterally and external ears normal General nose exam: Normal external nose present, no nasal discharge noted and no epistaxis Face and sinus: Yes normal facial exam, No abrasion and No laceration Mouth: Normal oral and palatal mucosa present, no drooling and no muffled voice Eyes General: appearance normal, both eyes and all related structures Periorbital: periorbital findings normal Eyelids: Yes eyelids normal Conjunctivae: conjunctivae normal Pupils: Equal, round and reactive pupils present EOM: EOMs intact bilaterally Neck Neck: Yes normal visual inspection, Yes full ROM and Yes no lymphadenopathy Chest Chest palpation & inspection: normal inspection of the chest Resp Effort & Inspection: normal respiratory effort and able to speak in complete sentences GI Inspection: Yes normal to inspection Neuro General: patient oriented x3 and moves all extremities Cranial nerves: Yes Equal, round and reactive pupils present Cognition (Neuro): normal cognition Motor exam (neuro): 5/5 motor strength present throughout Sensory Exam: Normal double simultaneous stimulation for sensation Coordination: [id number] test normal Extrem General: Yes normal to inspection, Yes full ROM and Yes capillary refill normal Psych Appearance: grossly normal Mental Status: mental status grossly normal Affect: normal affect Attitude: cooperative Thought process: Normal thought process present Thought content: Normal thought content present Insight: Good insight present (Psych) Course Course Course Narrative: RME performed by Tatyana Lopez PA-C. Patient is a 47 year old assigned female at presenting to the emergency department with LLQ abdominal pain and bright red rectal bleeding. Labs, imaging, and swabs ordered. Patient placed back in the waiting room pending room availability and results. Medical Decision Making Medical Decision Making MDM Narrative: Patient is a 47 year old assigned female at with a history of kidney stones presenting to the emergency department today with abdominal pain and bright red blood in her stools. Patient's limited physical exam performed in triage was unremarkable. Patient's blood work was unremarkable. Patient's urine showed no acute process. Patient's abdomen/pelvis CT showed no acute process. Patient left without completing treatment. Patient left the department before myself or any of the other emergency department clinicians could explain or review physical exam findings, test results, imaging results, need or lack there of for additional testing or imaging, treatment plan, or treatment options. Differential Diagnosis Differential Diagnoses: The differential diagnosis associated with the presentation includes Abdominal pain Kidney stone UTI Admission/Observation Consideration of admission/observation: Escalation of care including admission/observation considered Patient would have been admitted to the hospital had her work up had any findings where hospital admission was appropriate, her clinical presentation warranted hospital admission, and she hadn't left the department before completing treatment. Lab Data MDM Lab Attestation statement: I reviewed the patient's lab results. My interpretation of these studies and their corresponding values is that they are grossly normal. 01/28/23 12:18 01/28/23 12:18 Labs: Lab Results 01/28/23 01/28/23 Range/Units 12:18 15:59 WBC 7.2 (4.8-10.8) X10*3/uL RBC 3.91 L (4.20-5.50) X10*6/uL Hgb 10.0 L (12.0-16.0) g/dl Hct 31.8 L D (37.0-47.0) % MCV 81.3 (80.0-98.0) fL MCH 25.6 L (27.0-33.0) pg MCHC 31.4 (31.0-35.0) g/dl RDW 16.8 H (11.0-16.0) % Plt Count 254 (160-400) X10*3/uL MPV 9.4 (9.4-12.3) fL Immature Gran % (Auto) 0.6 H (0.0-0.4) % Neut % (Auto) 54.1 (45-73) % Lymph % (Auto) 38.5 (20-40) % Pershing % (Auto) 5.0 (2-11) % Eos % (Auto) 1.4 (0-4) % Baso % (Auto) 0.4 (0-2) % Lymph # (Auto) 2.8 (1.2-4.9) X10*3/uL Pershing # (Auto) 0.4 (0.1-1.2) X10*3/uL Eos # (Auto) 0.1 (0.0-0.4) X10*3/uL Baso # (Auto) 0.0 (0.0-0.2) X10*3/uL Abs Immat Gran (auto) 0.04 H (0.00-0.03) X10*3/uL Absolute Neuts (auto) 3.9 (2.0-8.3) x10*3/uL Absolute Nucleated RBC 0.000 (0.0-0.012) X10*3/uL Nucleated RBC % (auto) 0.0 (0.0-0.2) /100WBC Sodium 139 (135-145) mmol/L Potassium 3.4 (3.3-5.1) mmol/L Chloride 108 (96-108) mmol/L Carbon Dioxide 23 (22-29) mmol/L Anion Gap 11 L (12-20) BUN 9 (9-16) mg/dL Creatinine 0.70 (0.5-1.4) mg/dL Estim Creat Clear Calc 122.3 Estimated GFR > 60 Random Glucose 108 (60-115) mg/dL Calcium 8.6 (8.4-10.2) mg/dL Total Bilirubin 0.2 (0.0-1.0) mg/dL AST 31 (5-31) U/L ALT 23 (0-31) U/L Alkaline Phosphatase 74 (39-117) U/L Total Protein 8.1 H (6.5-8.0) g/dL Albumin 3.7 (3.5-5.0) g/dL Beta HCG, Quant < 2 mIU/mL Urine Color Yellow Urine Appearance Clear Urine pH 6.0 (5.0-9.0) Ur Specific [place] >= 1.030 H (1.005-1.025) Urine Protein Trace (Neg-Trace) mg/dL Urine Glucose (UA) Negative (Negative) mg/dL Urine Ketones Negative (Negative) mg/dL Urine Blood Large (3+) H (Negative) Urine Nitrite Negative (Negative) Ur Leukocyte Esterase Negative (Negative) Urine RBC 6-10 H (0-2) /HPF Urine WBC 6-10 H (0-5) /HPF Ur Squamous Epith Cells 11-20 (0-2) /HPF Urine Bacteria 1+ (None Seen) Hyaline Casts 0-2 (0-2) /LPF Influenza Type A (PCR) NEGATIVE (Negative) Influenza Type B (PCR) NEGATIVE (Negative) RSV RNA Qual (PCR) NEGATIVE (Negative) SARS-CoV-2 RNA (RT-PCR) NEGATIVE (Negative) Independent Interpretation I performed an independent interpretation of an: CT Scan Interpretation: My interpretation is in agreement with the radiologist's impression of this imaging study. EXAMINATION: CT ABDOMEN AND PELVIS WITHOUT CONTRAST CLINICAL INFORMATION: abd pain, LLQ, rectal bleeding. COMPARISON: 07/15/2021 CT scan. TECHNIQUE: Multidetector volumetric imaging was performed from the superior aspect of the liver through the pubic symphysis without contrast per renal stone protocol. Sagittal and coronal reformatted images were obtained on the technologist workstation. This CT examination was performed using dose optimization techniques as appropriate, variously including the following: *Automated exposure control *Adjustment of mA and/or kV according to patient size (this includes techniques or standardized protocols for targeted exams where dose is matched to indication/reason for exam; i.e. extremities or head) *Use of iterative reconstruction technique DLP: 897 mGy-cm. FINDINGS: LUNG BASES: Minimal dependent atelectasis at the right lung base LIVER, GALLBLADDER, BILIARY TREE: Diffuse low-attenuation liver suggesting underlying fatty infiltration. There is a low-attenuation region in posterior segment 7 of the liver measuring approximately 1.6 cm in diameter likely representing a small cyst similar to the 07/15/[address] scan. No biliary ductal dilatation. The gallbladder surgically absent. PANCREAS: Unremarkable. SPLEEN: Unremarkable. ADRENAL GLANDS: Unremarkable. KIDNEYS AND URETERS: Nonobstructed 3 mm calculi in the mid to upper pole collecting system of the left kidney with a nonobstructing 2 to 3 mm calculi in the lower pole collecting system of the left kidney. No right-sided intrarenal calculi. No hydronephrosis or perinephric stranding. I do not appreciate any ureteric calculi on the examination. BLADDER: Decompressed but otherwise unremarkable. GASTROINTESTINAL TRACT: Colonic diverticulosis but no focal colonic wall thickening or pericolonic inflammatory change to suggest diverticulitis. Visualized small bowel unremarkable. ABDOMINAL WALL: No significant hernia is appreciated. LYMPHOVASCULAR STRUCTURES: No lymphadenopathy. The aorta is unremarkable.. PELVIC VISCERA: Unremarkable. OSSEUS STRUCTURES: Unremarkable. CT/CT abdomen pelvis wo IV con IMPRESSION: Chronic appearing changes as described above. I do not appreciate any acute intra-abdominal process. Dictated By: Carlos Velasco MD Signed By: Electronically signed by Carlos Velasco MD 01/28/231925 Radiology Impression Discussion of test interpretation with radiology: I have reviewed the radiologist's reading. Discharge Plan Discharge Clinical Impression: Abdominal pain Patient Disposition: Left W/O Completing Treatment Prescriptions: No Action ibuprofen 600 mg tablet 600 mg PO Q6H PRN (Reason: pain) Qty: 60 0RF oxycodone-acetaminophen [Percocet] 5-325 mg tablet 1 tab PO Q4-6H PRN (Reason: pain) Qty: 30 0RF Rx Instructions: Partial Fill upon patient request. albuterol sulfate 90 mcg/actuation HFA aerosol inhaler 1 inh inhalation QID PRN (Reason: shortness of breath or wheezing) Qty: 6.7 0RF cyclobenzaprine 10 mg tablet 10 mg PO TID PRN (Reason: muscle spasm) Qty: 10 0RF ferrous sulfate 325 mg (65 mg iron) tablet,delayed release (DR/EC) 325 mg PO DAILY Discharge Date/Time: 01/28/23 19:28
[2023-01-28 16:13] LABS: Appearance Urine Clear; Color Urine Yellow; Glucose Urine UA Negative (Negative); Leukocyte Esterase Urine Negative (Negative); Nitrite Urine Negative (Negative); Specific Gravity - Urine >= 1.030 (1.005-1.025); UMIC TRIGGER UACC YES; Urine Blood Large (3+) (Negative); Urine Ketones Negative (Negative); Urine Protein Trace mg/dL (Neg-Trace)
[2023-01-28 16:17] LABS: Bacteria Urine 1+ (None Seen); Hyaline Casts Urine 0-2 /LPF (0-2); UACC Culture Trigger YES
[2023-01-28 16:36] LABS: HCG Quantitative < 2 mIU/mL
== END 2023-01-28 19:28 | disposition left against medical advice (07) ==
PROVIDERS: Physician Assistant Medical; Emergency Provider Emergency Medicine; PCP Internal Medicine
DX: R10.32 Left lower quadrant pain (principal); K92.1 Melena; Z79.899 Other long term (current) drug therapy; Z20.822 Contact with and (suspected) exposure to COVID-19; Z20.828 Contact with and (suspected) exposure to other viral communicable diseases
CPT/HCPCS: 0241U; 36415; 74176; 80053; 81001; 84702; 85025; 87086; 99282; 99284